=== PATIENT | female | born 1940 | race Caucasian/White ===

== ENCOUNTER 2018-06-10 16:20 | Inpatient (IN) ==
[2018-06-10] MEDS ORDERED: Isovue-370 500 ML BOTTLE IVP ONE (16:41)
[2018-06-10 17:03] LABS: Basophils % 0.4 %; Eosinophils # 0.1 K/mcL (0.0-0.6); Eosinophils % 1.3 %; Hematocrit 43.1 % (35.3-44.9); Hemoglobin 14.6 g/dL (11.5-15.4); Immature Granulocytes % 0.3 % (0-4); Lymphocytes # 1.5 K/mcL (0.6-4.6); Lymphocytes % 16.6 %; Mean Corpuscular HGB Conc 33.9 g/dL (31.6-35.5); Mean Corpuscular Hemoglobin 30.5 pg (28.0-33.3); Mean Platelet Volume 11.1 fL (9.4-12.4); Monocytes # 0.6 K/mcL (0.0-1.3); Monocytes % 6.3 %; Neutrophils # 6.8 K/mcL (1.6-8.9); Platelet Count 261 K/mcL (140-400); Red Blood Count 4.79 M/mcL (3.82-4.97); Red Cell Distribution Width 13.6 % (11.5-14.5); Segmented Neutrophils % 75.1 %
--- NOTE | 2018-06-10 17:10 | Emergency Department Note ---
Disposition Clinical Impression: New onset a-fib, Atrial fibrillation with RVR, Hypoxia, Acute dyspnea, Elevated brain natriuretic peptide (BNP) level Pneumonia Qualifiers: Pneumonia type: due to unspecified organism Laterality: bilateral Lung location: lower lobe of lung Qualified Code(s): J18.1 - Lobar pneumonia, u nspecified organism Pulmonary edema Qualifiers: Chronicity: acute Qualified Code(s): J81.0 - Acute pulmonary edema Disposition: Admitted As Inpatient Condition: Fair Referrals: Gary Brown MD [Primary Care Provider] - Forms: ED Satisfaction Letter Time of Disposition: 20:04 SOB HPI - General Chief Complaint: ED Shortness of Breath/Dyspnea Stated Complaint: Pleural effusion, HUDSON Time Seen by Provider: 06/10/18 16:31 Source: patient Mode of arrival: ambulatory Limitations: no limitations Nursing Notes Reviewed: Yes Vital Signs Reviewed: Yes - History of Present Illness Patient is a 78-year-old female with past medical history of smoking, hyperlipidemia, hypertension. She presents today via EMS due to concern for pl eural effusion, tachypnea, elevated heart rate, low oxygen level. Patient was sent from urgent care with reported finding of pleural effusions. Patient states that she has been short of breath for the past several days. She feels very short of breath when she is exerting herself. She denies any chest pain, productive cough, any fevers, vomiting, abdominal pain, diarrhea, blood in stool, any history of CHF or COPD. Denies any cardiac history. - Related Data Home Medications Medication Instructions Recorded Confirmed Aspirin 81 mg PO DAILY 11/12/15 06/10/18 Calcium Carbonate [Calcium] 600 mg PO BID 11/12/15 06/10/18 [place]-3/Dha/Epa/Fish Oil [Fish Oil 1,000 mg PO DAILY 11/12/15 06/10/18 1,000 mg Softgel] Simvastatin [Zocor] 20 mg PO HS 11/12/15 06/10/18 amLODIPine [Norvasc] 5 mg PO DAILY 11/12/15 06/10/18 Multivit-Min/FA/Lycopen/Lutein 1 each PO DAILY 06/10/18 06/10/18 [Centrum Silver Tablet] Allergies Allergy/AdvReac Type Severity Reaction Status Date / Time Amoxicillin Allergy Hives Verified 10/25/15 17:43 Sulfa (Sulfonamide Allergy Hives Verified 10/25/15 17:43 Antibiotics) oxycodone [Oxycodone] AdvReac Nausea Verified 07/14/17 14:28 All systems ED: reviewed and negative except as stated. Constitutional: Denies: fever Cardiovascular: Denies: chest pain Respiratory: Reports: dyspnea. Denies: cough, wheezes, hemoptysis, sputum production Gastrointestinal: Denies: abdominal pain, nausea, vomiting, diarrhea Genitourinary: Denies: urgency, dysuria Musculoskeletal: Denies: back pain Integumentary: Denies: rash Neurological: Denies: weakness, numbness, paresthesias Past Medical History - Past Medical History Attestation: Yes The following information was validated with the patient. Source: patient Medical history: Reports: hyperlipidemia, hypertension Surgical history: Reports: appendectomy, sinus surgery Psychiatric history: Reports: no psych history - Social History Smoking Status: Never smoker Smokeless Tobacco Status: No Alcohol use: Reports: none Drug use: Reports: none Physical Exam - General Limitations: no limitations General appearance: alert, other (Mild respiratory distress) - Head Head exam: atraumatic, normocephalic, normal inspection - Eye Eye exam: Present: normal appearance, PERRL, EOMI - ENT ENT exam: normal exam, normal oropharynx, mucous membranes moist - Neck Neck exam: Present: normal inspection, full ROM, trachea midline - Chest Chest inspection: Present: normal inspection, symmetric chest wall rise - Respiratory Respiratory exam: Present: respiratory distress (Mild), other (decreased RLL sounds with crackles; patient is mildly tachypneic, has mild increased work of breathing). Absent: wheezes, stridor - Cardiovascular Cardiovascular exam: Present: tachycardia, irregular rhythm, normal heart sounds - Abdominal Exam Abdominal exam: Present: soft, Non-Tender. Absent: tenderness, distention, guarding, rebound, rigidity - Extremities Exam Extremities exam: Present: normal inspection, full ROM. Absent: tenderness, pedal edema, calf tenderness - Neurological Exam Neurological exam: Present: alert, oriented X3 - Psychiatric Psychiatric exam: Present: normal affect, normal mood - Skin Skin exam: Present: warm, dry, intact, normal color Course Course Narrative: Patient was tachycardic on presentation in the 160s. It appears that she is in A. fib RVR on EKG. Patient had a chest x-ray today performed at urgent care that shows pleural effusion and mild pulmonary edema. No obvious signs of pneumonia. On physical exam, the patient is in mild respiratory distress, has increased work of breathing, is to get back, has decreased lung sounds on the right lower lobe with crackles. We will give the patient Cardizem 10 mg bolus for A. fib RVR. We also perform CT and she the chest to assess for pleural effusion versus pneumonia versus PE. Patient is placed on 2 L nasal cannula oxygen, she was 93% on presentation. She does not usually wear oxygen at home. Patient also received 2 albuterol breathing treatments prior to arrival. We will obtain basic labs, troponin, BNP. 20:04 CT the chest shows bilateral pleural effusions, possible bilateral lower lobe pneumonia. No evidence of any PE. Patient was started on Rocephin and azithromycin, given Lasix 40 mg. She was also placed on BiPAP. She had a be given Ativan 0.5 mg to be compliant with the BiPAP machine. She is given Cardizem bolus and placed on drip, heart rate is now on the 110s. Blood pressure remained stable throughout this entire stay. Currently concern for new onset A. fib RVR, patient was given Xarelto here in the department. She is also concerning for pneumonia, possible new onset CHF. Patient was accepted for admission by Dr. Royal. Chest CTA 06/10/18 16:41 IMPRESSION: No evidence of pulmonary embolism or aortic dissection. Bilateral pleural effusions with adjacent airspace disease along with interlobular septal thickening, the constellation of which is most suggestive of pulmonary edema. However, there are more focal areas of airspace disease within the lower lungs, therefore correlate with any clinical evidence of pneumonia or aspiration. D/ / Omar Hawkins MD / Omar Hawkins MD Interpreting Provider: Omar Hawkins MD Vital Signs Temperature 97.4 F L 06/10/18 16:23 Pulse Rate 161 06/10/18 16:23 Respiratory Rate 22 06/10/18 16:23 Blood Pressure 146/82 06/10/18 16:23 O2 Sat by Pulse Oximetry 94 06/10/18 16:23 Temperature 97.4 F L 06/10/18 16:23 Pulse Rate 123 06/10/18 19:20 Respiratory Rate 22 06/10/18 19:20 Blood Pressure 136/85 06/10/18 19:20 O2 Sat by Pulse Oximetry 99 06/10/18 19:20 Oxygen Delivery Oxygen Delivery Bipap Shortness of Breath/Dyspnea - MDM Narrative Medical decision making narrative: Patient was tachycardic on presentation in the 160s. It appears that she is in A. fib RVR on EKG. Patient had a chest x-ray today performed at urgent care that shows pleural effusion and mild pulmonary edema. No obvious signs of pneumonia. On physical exam, the patient is in mild respiratory distress, has increased work of breathing, is to get back, has decreased lung sounds on the right lower lobe with crackles. We will give the patient Cardizem 10 mg bolus for A. fib RVR. We also perform CT and she the chest to assess for pleural effusion versus pneumonia versus PE. Patient is placed on 2 L nasal cannula oxygen, she was 93% on presentation. She does not usually wear oxygen at home. Patient also received 2 albuterol breathing treatments prior to arrival. We will obtain basic labs, troponin, BNP. 20:04 CT the chest shows bilateral pleural effusions, possible bilateral lower lobe pneumonia. No evidence of any PE. Patient was started on Rocephin and azithromycin, given Lasix 40 mg. She was also placed on BiPAP. She had a be given Ativan 0.5 mg to be compliant with the BiPAP machine. She is given Cardizem bolus and placed on drip, heart rate is now on the 110s. Blood pressure remained stable throughout this entire stay. Currently concern for new onset A. fib RVR, patient was given Xarelto here in the department. She is also concerning for pneumonia, possible new onset CHF. Patient was accepted for admission by Dr. Royal. - Medical Records Medical records reviewed: Yes I reviewed the patient's medical records. - Lab Data Lab results reviewed: Yes I reviewed the patient's lab results. Result diagrams: 06/10/18 16:45 06/10/18 16:45 Lab Results 06/10/18 06/10/18 06/10/18 Range/Units 16:45 16:45 16:45 WBC 9.0 (4.3-11.1) K/mcL RBC 4.79 (3.82-4.97) M/mcL Hgb 14.6 (11.5-15.4) g/dL Hct 43.1 (35.3-44.9) % MCV 90.0 (83.0-100.0) fL MCH 30.5 (28.0-33.3) pg MCHC 33.9 (31.6-35.5) g/dL RDW 13.6 (11.5-14.5) % Plt Count 261 (140-400) K/mcL MPV 11.1 (9.4-12.4) fL Immature Gran % 0.3 (0-4) % Seg Neutrophils % 75.1 % Lymphocytes % 16.6 % Monocytes % 6.3 % Eosinophils % 1.3 % Basophils % 0.4 % Neutrophils # 6.8 (1.6-8.9) K/mcL Lymphocytes # 1.5 (0.6-4.6) K/mcL Monocytes # 0.6 (0.0-1.3) K/mcL Eosinophils # 0.1 (0.0-0.6) K/mcL Basophils # 0.0 (0.0-0.2) K/mcL Sodium 139 (136-145) mEq/L Potassium 4.2 (3.5-5.1) mEq/L Chloride 103 (98-107) mEq/L Carbon Dioxide 22 L (23-29) mEq/L BUN 14 (8-23) mg/dL Creatinine 0.82 (0.60-1.20) mg/dL Est GFR ( Amer) > 60 (> 60) Est GFR (Non-Af Amer) > 60 (> 60) BUN/Creatinine Ratio 17 (6-26) Glucose 139 H (70-105) mg/dL Calculated Osmolality 291 (280-300) Lactic Acid 2.0 (0.5-2.2) mmol/L Calcium 10.0 (8.6-10.3) mg/dL Troponin I < 0.03 (< 0.04) ng/mL B-Natriuretic Peptide (Less than 100) pg/mL 06/10/18 06/10/18 Range/Units 16:45 19:05 WBC (4.3-11.1) K/mcL RBC (3.82-4.97) M/mcL Hgb (11.5-15.4) g/dL Hct (35.3-44.9) % MCV (83.0-100.0) fL MCH (28.0-33.3) pg MCHC (31.6-35.5) g/dL RDW (11.5-14.5) % Plt Count (140-400) K/mcL MPV (9.4-12.4) fL Immature Gran % (0-4) % Seg Neutrophils % % Lymphocytes % % Monocytes % % Eosinophils % % Basophils % % Neutrophils # (1.6-8.9) K/mcL Lymphocytes # (0.6-4.6) K/mcL Monocytes # (0.0-1.3) K/mcL Eosinophils # (0.0-0.6) K/mcL Basophils # (0.0-0.2) K/mcL Sodium (136-145) mEq/L Potassium (3.5-5.1) mEq/L Chloride (98-107) mEq/L Carbon Dioxide (23-29) mEq/L BUN (8-23) mg/dL Creatinine (0.60-1.20) mg/dL Est GFR ( Amer) (> 60) Est GFR (Non-Af Amer) (> 60) BUN/Creatinine Ratio (6-26) Glucose (70-105) mg/dL Calculated Osmolality (280-300) Lactic Acid 2.0 (0.5-2.2) mmol/L Calcium (8.6-10.3) mg/dL Troponin I (< 0.04) ng/mL B-Natriuretic Peptide 406 H (Less than 100) pg/mL - Radiology Data Radiology results reviewed: Yes I reviewed the patient's radiology results. Chest CTA 06/10/18 16:41 IMPRESSION: No evidence of pulmonary embolism or aortic dissection. Bilateral pleural effusions with adjacent airspace disease along with interlobular septal thickening, the constellation of which is most suggestive of pulmonary edema. However, there are more focal areas of airspace disease within the lower lungs, therefore correlate with any clinical evidence of pneumonia or aspiration. D/ / Omar Hawkins MD / Omar Hawkins MD Interpreting Provider: Omar Hawkins MD - EKG Data EKG attestation: Yes I reviewed and interpreted this EKG. EKG results narrative: 06/10/2018 at 16:39. A. fib RVR. Rate 149. QRS 73. QTC 457. Normal axis. No acute ST elevation or depression. Changed from previous EKG which showed NSR on 11/11/15 S.B.A.R. - S.B.A.R. Situation: Demographics, MOA Background: Presenting Complaint, Relevant PMH, Meds, & Allergies Assessment: Vital Signs, Course and respsone to treatment, Exam Concerns, Patient/Family Expectation, Pertinant Lab Results, Outstanding Labs Recommendation: Barrier(s) to disposition, Recommendation based on pending studies, treatments, or consults S.B.A.R. Report Given to: Dr Braden Royal Attestation Statement - Attestation Attestation: I, Jovanni Dueñas DO, examined this patient [id number] and my medical decision-making was reviewed with Dr. Tristan Mcmahon, Resident Physician. I agree with the documented findings, disposition and treatment plan as described except to the extent set forth below. Please see my progress notes for details.
[2018-06-10 17:25] LABS: BUN/Creatinine Ratio 17 (6-26); Blood Urea Nitrogen 14 mg/dL (8-23); Carbon Dioxide 22 mEq/L (23-29); Chloride 103 mEq/L (98-107); Glucose 139 mg/dL (70-105); Osmolality,Calculated 291 (280-300); Potassium 4.2 mEq/L (3.5-5.1); Sodium 139 mEq/L (136-145); eGFR For Non-African Americans > 60 (> 60)
--- NOTE | 2018-06-10 17:25 | Emergency Department Note ---
Disposition Clinical Impression: New onset a-fib, Atrial fibrillation with RVR, Hypoxia, Acute dyspnea, Elevated brain natriuretic peptide (BNP) level Pneumonia Qualifiers: Pneumonia type: due to unspecified organism Laterality: bilateral Lung location: lower lobe of lung Qualified Code(s): J18.1 - Lobar pneumonia, u nspecified organism Pulmonary edema Qualifiers: Chronicity: acute Qualified Code(s): J81.0 - Acute pulmonary edema Disposition: Admitted As Inpatient Condition: Fair Time of Disposition: 20:12 General Adult HPI - General Chief complaint: ED Shortness of Breath/Dyspnea Stated complaint: Pleural effusion, HU[place] Time Seen by Provider: 06/10/18 16:31 Source: patient Mode of arrival: ambulatory Limitations: no limitations - History of Present Illness Pain Scale: 0 - Related Data Home Medications Medication Instructions Recorded Confirmed Aspirin 81 mg PO DAILY 11/12/15 06/10/18 Calcium Carbonate [Calcium] 600 mg PO BID 11/12/15 06/10/18 [place]-3/Dha/Epa/Fish Oil [Fish Oil 1,000 mg PO DAILY 11/12/15 06/10/18 1,000 mg Softgel] Simvastatin [Zocor] 20 mg PO HS 11/12/15 06/10/18 amLODIPine [Norvasc] 5 mg PO DAILY 11/12/15 06/10/18 Multivit-Min/FA/Lycopen/Lutein 1 each PO DAILY 06/10/18 06/10/18 [Centrum Silver Tablet] Allergies Allergy/AdvReac Type Severity Reaction Status Date / Time Amoxicillin Allergy Hives Verified 10/25/15 17:43 Sulfa (Sulfonamide Allergy Hives Verified 10/25/15 17:43 Antibiotics) oxycodone [Oxycodone] AdvReac Nausea Verified 07/14/17 14:28 Constitutional: Denies: fever Cardiovascular: Denies: chest pain Respiratory: Reports: dyspnea. Denies: cough, wheezes, hemoptysis, sputum production Gastrointestinal: Denies: abdominal pain, nausea, vomiting, diarrhea Genitourinary: Denies: urgency, dysuria Musculoskeletal: Denies: back pain Integumentary: Denies: rash Neurological: Denies: weakness, numbness, paresthesias Past Medical History - Past Medical History Medical history: Reports: hyperlipidemia, hypertension Surgical history: Reports: appendectomy, sinus surgery Psychiatric history: Reports: no psych history - Social History Smoking Status: Never smoker Smokeless Tobacco Status: No Alcohol use: Reports: none Drug use: Reports: none Physical Exam - General Limitations: no limitations General appearance: alert, other (Mild respiratory distress) Course Vital Signs Temperature 97.4 F L 06/10/18 16:23 Pulse Rate 161 06/10/18 16:23 Respiratory Rate 22 06/10/18 16:23 Blood Pressure 146/82 06/10/18 16:23 O2 Sat by Pulse Oximetry 94 06/10/18 16:23 Temperature 97.4 F L 06/10/18 16:23 Pulse Rate 120 06/10/18 20:05 Respiratory Rate 18 06/10/18 20:05 Blood Pressure 114/81 06/10/18 20:05 O2 Sat by Pulse Oximetry 99 06/10/18 20:05 Oxygen Delivery Oxygen Delivery Bipap Medical Decision Making - Lab Data Result diagrams: 06/10/18 16:45 06/10/18 16:45 Lab Results 06/10/18 06/10/18 06/10/18 Range/Units 16:45 16:45 16:45 WBC 9.0 (4.3-11.1) K/mcL RBC 4.79 (3.82-4.97) M/mcL Hgb 14.6 (11.5-15.4) g/dL Hct 43.1 (35.3-44.9) % MCV 90.0 (83.0-100.0) fL MCH 30.5 (28.0-33.3) pg MCHC 33.9 (31.6-35.5) g/dL RDW 13.6 (11.5-14.5) % Plt Count 261 (140-400) K/mcL MPV 11.1 (9.4-12.4) fL Immature Gran % 0.3 (0-4) % Seg Neutrophils % 75.1 % Lymphocytes % 16.6 % Monocytes % 6.3 % Eosinophils % 1.3 % Basophils % 0.4 % Neutrophils # 6.8 (1.6-8.9) K/mcL Lymphocytes # 1.5 (0.6-4.6) K/mcL Monocytes # 0.6 (0.0-1.3) K/mcL Eosinophils # 0.1 (0.0-0.6) K/mcL Basophils # 0.0 (0.0-0.2) K/mcL Sodium 139 (136-145) mEq/L Potassium 4.2 (3.5-5.1) mEq/L Chloride 103 (98-107) mEq/L Carbon Dioxide 22 L (23-29) mEq/L BUN 14 (8-23) mg/dL Creatinine 0.82 (0.60-1.20) mg/dL Est GFR ( Amer) > 60 (> 60) Est GFR (Non-Af Amer) > 60 (> 60) BUN/Creatinine Ratio 17 (6-26) Glucose 139 H (70-105) mg/dL Calculated Osmolality 291 (280-300) Lactic Acid 2.0 (0.5-2.2) mmol/L Calcium 10.0 (8.6-10.3) mg/dL Troponin I < 0.03 (< 0.04) ng/mL B-Natriuretic Peptide (Less than 100) pg/mL 06/10/18 06/10/18 Range/Units 16:45 19:05 WBC (4.3-11.1) K/mcL RBC (3.82-4.97) M/mcL Hgb (11.5-15.4) g/dL Hct (35.3-44.9) % MCV (83.0-100.0) fL MCH (28.0-33.3) pg MCHC (31.6-35.5) g/dL RDW (11.5-14.5) % Plt Count (140-400) K/mcL MPV (9.4-12.4) fL Immature Gran % (0-4) % Seg Neutrophils % % Lymphocytes % % Monocytes % % Eosinophils % % Basophils % % Neutrophils # (1.6-8.9) K/mcL Lymphocytes # (0.6-4.6) K/mcL Monocytes # (0.0-1.3) K/mcL Eosinophils # (0.0-0.6) K/mcL Basophils # (0.0-0.2) K/mcL Sodium (136-145) mEq/L Potassium (3.5-5.1) mEq/L Chloride (98-107) mEq/L Carbon Dioxide (23-29) mEq/L BUN (8-23) mg/dL Creatinine (0.60-1.20) mg/dL Est GFR ( Amer) (> 60) Est GFR (Non-Af Amer) (> 60) BUN/Creatinine Ratio (6-26) Glucose (70-105) mg/dL Calculated Osmolality (280-300) Lactic Acid 2.0 (0.5-2.2) mmol/L Calcium (8.6-10.3) mg/dL Troponin I (< 0.04) ng/mL B-Natriuretic Peptide 406 H (Less than 100) pg/mL Attestation Statement - Attestation Attestation: I, Jovanni Dueñas DO, examined this patient [id number] and my medical decision-making was reviewed with Dr. Tristan Mcmahon, Resident Physician. I agree with the documented findings, disposition and treatment plan as described except to the extent set forth below. Please see my progress notes for details. 78-year-old female presents emergency room in the care of family for evaluation of shortness of breath. The last several days the patient has been progressi vely getting worse with exertion. Every time she walks she is short of breath directly after she stops. Patient denies any history of COPD or CHF. She does have a remote smoking history but has not smoked in multiple years. Patient denies any chest pain fevers or chills. No nausea vomiting or diarrhea. No headache or vision change. She has not fallen or injured herself. She was seen in urgent care today and they diagnosed her with bilateral interstitial disease and perihilar abnormality. Patient has not had a productive cough or sputum. Patient is provided with 2 breathing treatments prior to transportation. On arrival here her heart rate is significantly elevated. Her lungs are otherwise clear. She does have an irregular heartbeat. Oropharynx is patent trachea is midline. No stridor no trismus. Patient is alert she is oriented she is answering questions appropriately. Cranial nerves II through XII are grossly intact with no acute abnormalities. Patient was able to ambulate from the wheelchair to the bed without any signs of ataxia or abnormality. Abdomen is soft nontender nondistended. No guarding or rigidity. Extremities are normal. No rashes or lesions noted this time. Concern is noted for interstitial lung disease exacerbated by possible congestive heart failure, COPD exacerbation, new onset atrial fibrillation. Patient will be provided with a single dose of Cardizem here in the emergency department secondary to the tachycardic heart rate. Her other vital signs otherwise stable. Breathing treatments will be ordered as needed. Steroids will be given. Chest x-ray EKG CBC chemistry troponin lactic acid will be ordered as well. Antibiotics will be held at this point we are definitive infectious source. Patient does not describe any productive cough or sputum to confirm concern for recent illness or infection. Disposition pending full workup and treatment course. See detailed documentation the physical exam, medical intervention, medical decision-making and disposition in the resident physician's note. No critical care provider the patient's treatment course at this time. CT angiography the chest will be added on this time considering the abnormal presentation to the chest x-ray and the patient's symptoms. 1814 CT angiography the chest is negative for acute pulmonary emboli. Does show interstitial markings concerning for pulmonary edema. Patient will be reevaluated this time. Her heart rate has come down appropriately with the Cardizem and she is less symptomatic with stable blood pressure. BiPAP will be offered for bleeding related issues. Patient's presentation is most consistent with cardiac arrhythmia exacerbated by pulmonary edema and heart failure. Patient will require admission after the treatment course has been established. Discussion will be had for possible anticoagulation secondary to atrial fib rillation. Patient denies any blood in her urine or stool. She has not had a GI bleed in the past and typically is stable hemoglobin. [address] Royal reviewed the case. No other recommendations or concerns are noted this time. Patient is otherwise clinical stable. Heart rate is co kel down appropriately with the titration of Cardizem. BiPAP is been applied the patient is tolerating it much better. Pulse ox is been normal. Patient's work of breathing is significantly less at this time. Patient will be monitored in the emergency department until the admission process is completed.
[2018-06-10 17:26] LABS: Troponin I < 0.03 ng/mL (< 0.04)
[2018-06-10] MEDS ORDERED: cefTRIAXone 1,000 MG in Water for inj. (sterile) 20 ML 10 ML IVP ONE (18:18)
[2018-06-10] MEDS ORDERED: Azithromycin 500 MG in D5% in Water 250 ML IVPB ONE (18:18)
[2018-06-10] MEDS ORDERED: methylPREDNISolone 125 MG/2 ML VIAL IVP ONE (18:21)
[2018-06-10] MEDS ORDERED: Furosemide 40 MG/4 ML VIAL IVP ONE (18:42)
[2018-06-10] MEDS ORDERED: *HR* LORazepam 2 MG/ML VIAL IVP ONE (18:42)
[2018-06-10] MEDS ORDERED: *HR* Rivaroxaban 10 MG TABLET PO ONE (19:17)
[2018-06-10] MEDS ORDERED: Naloxone 0.4 MG/ML INJ IVP PRN (20:44)
[2018-06-10] MEDS ORDERED: Ondansetron 4 MG/2 ML VIAL IVP PRN (20:44)
[2018-06-10] MEDS ORDERED: Acetaminophen 325 MG TABLET PO PRN (20:44)
--- NOTE | 2018-06-10 21:19 | Internal Med History&Physical ---
Addendum entered and electronically signed by Gay Kraft 06/11/18 03:18: CHADSVASC score of 4. Discussed recommendation for anticoagulation with patient and family on admission and they were agreeable. Spoke with patient regarding code status, patient states that she has a living will at home. She had difficultly articulating her wishes. Requested that patient have her family bring in her living will and POA. Patient was able to confirm that she did not want CPR in the event of cardiac arrest. She also states that she does not want to be a "vegetable on a ventilator." Informed patient that she will be documented as a DNR-CCA for now until her paperwork can be confirmed. Original Note: <Gay Kraft - Last Filed: 06/11/18 00:28> Date of Encounter: 06/11/18 Time of Encounter: 10:22 Internal Medicine - H&P: HPI Chief complaint: Shortness of breath Admitted From: Home History of present illness: Ms. Dominguez is a 78 year old female with history of hypertension, hyperlipidemia, current daily smoker presented to urgent care with complaint of progressive shortness of breath over the past several days and was sent to the [place] [facility] via EMS from urgent care due to bilateral pleural effusions and mild pulmonary edema on CXR, tachypnea and elevated heart rate. ER course: Tachycardic in the 160s EKG showed A. fib RVR, no known history CT chest with bilateral pleural effusions and possible bilateral lower lobe pneumonia. No evidence of PE. Received Rocephin and azithromycin 1 IV Lasix 40 mg 1 Placed on BiPAP with 30% FiO2 to mild respiratory distress, Ativan given for anxiety Cardizem bolus given, then Cardizem drip Xarelto 1 Solumedrol 125mg IV insulin On examination patient is sitting comfortably in bed with family at bedside. She states that she has had head congestion for approximately the past week which is why she initially sought care and was diagnosed with sinusitis. She denies any previous history of heart or lung disease, that she states she was d iagnosed with rheumatic fever as a child. States that her blood pressure has been well-controlled with medication. She states that she is fairly active and walks her dog regularly when the weather permits without difficulty. On Tuesday, patient reports that she acutely became short of breath on exertion. She becomes short of breath when walking for an extended period of time, and denies SOB at r est. Denies any lightheadedness, dizziness, syncope, chest pain, petitions, irregular heartbeat, falls, abdominal pain, or weakness. Past Med Surg Social Fam HX - Past Medical History Medical history: hyperlipidemia, hypertension Additional medical history: oa Psychiatric history: no psych history - Past Surgical History Surgical History: appendectomy, sinus surgery - Social History Smoking Status: Never smoker Smokeless Tobacco Status: No Alcohol use: none Drug use: none Internal Medicine - H&P: Meds Calcium Carbonate [Calcium] 600 mg PO BID 11/12/15 [History] [place]-3/Dha/Epa/Fish Oil [Fish Oil 1,000 mg Softgel] 1,000 mg PO DAILY 11/12/15 [History] RX: Aspirin 81 mg PO DAILY 11/12/15 [History] Simvastatin [Zocor] 20 mg PO HS 11/12/15 [History] amLODIPine [Norvasc] 5 mg PO DAILY 11/12/15 [History] Multivit-Min/FA/Lycopen/Lutein [Centrum Silver Tablet] 1 each PO DAILY 06/10/18 [History] Allergy/AdvReac Type Severity Reaction Status Date / Time Amoxicillin Allergy Hives Verified 10/25/15 17:43 Sulfa (Sulfonamide Allergy Hives Verified 10/25/15 17:43 Antibiotics) oxycodone [Oxycodone] AdvReac Nausea Verified 07/14/17 14:28 All Systems PM: A 10-system review of systems was performed and is negative for pertinent findings except as documented above in the HPI. - Constitutional Constitutional: no chills, no fever(s) - EENT Eyes: no change in vision Nose, mouth and throat: nasal congestion, no sinus pain - Cardiovascular Cardiovascular ROS IM: dyspnea on exertion, no chest pain, no diaphoresis, no edema, no irregular heart rhythm, no lightheadedness, no orthopnea, no palpitations, no syncope - Respiratory Respiratory: dyspnea on exertion, no cough - Gastrointestinal Gastrointestinal: no abdominal pain, no diarrhea, no vomiting - Genitourinary Genitourinary: no dysuria, no hematuria - Musculoskeletal Musculoskeletal ROS IM: no joint swelling, no numbness, no tingling - Integumentary Integumentary IM: no rash, no unusual bruising - Neurological Neurological ROS: no numbness, no tingling, no weakness - Constitutional Vitals: Temp Pulse Resp BP Pulse Ox 97.4 F L 131 28 113/63 99 06/10/18 16:23 06/10/18 21:08 06/10/18 21:08 06/10/18 21:08 06/10/18 21:08 General appearance: Present: A&O X 3, pleasant, no acute distress, answers questions appropriately Exam: see above - Head Head exam: Present: atraumatic, normocephalic - Eye Eye exam: Present: EOMI, conjuntiva pink, sclera anicteric - ENT ENT exam: Present: mucous membranes moist - Neck Neck exam general surgery: Present: trachea midline - Respiratory Respiratory exam: Absent: accessory muscle use, respiratory distress, wheezes Additional comments: Crackles noted in the bilateral bases. 94% on 2L NC. - Cardiovascular Cardiovascular exam: Present: irregular rhythm, +S1, +S2. Absent: diastolic murmur, rubs, systolic murmur Additional comments: tachycardic in the 140-150s during examination on 15mg Cardizem drip - GI/Abdominal GI/Abdominal exam: Present: normal bowel sounds, soft, no peritoneal signs. Absent: distended, tenderness - Extremities Exam Extremities exam: Present: pedal edema (trace pitting edema in bilateral LE), warm, radial pulses palpable and symmetrical. Absent: calf tenderness, cyanotic - Neurological Exam Neurological exam: Present: oriented X3, no focal deficits. Absent: pronater drift, facial droop, speech deficit - Psychiatric Psychiatric exam: Present: normal affect, normal mood - Skin Skin exam: Present: dry, intact, warm. Absent: cyanosis, diaphoretic, rash Internal Med - H&P Results - Labs CBC & Chem 7: 06/10/18 16:45 06/10/18 16:45 Labs: Short CBC 06/10/18 Range/Units 16:45 WBC 9.0 (4.3-11.1) K/mcL Hgb 14.6 (11.5-15.4) g/dL Hct 43.1 (35.3-44.9) % Plt Count 261 (140-400) K/mcL Neutrophils # 6.8 (1.6-8.9) K/mcL BMP 06/10/18 16:45 Sodium 139 Potassium 4.2 Chloride 103 Carbon Dioxide 22 L BUN 14 Creatinine 0.82 Glucose 139 H Calcium 10.0 Cardiac Enzymes 06/10/18 Range/Units 16:45 Troponin I < 0.03 (< 0.04) ng/mL - Impressions ITS Impressions Chest CTA 06/10/18 16:41 IMPRESSION: No evidence of pulmonary embolism or aortic dissection. Bilateral pleural effusions with adjacent airspace disease along with interlobular septal thickening, the constellation of which is most suggestive of pulmonary edema. However, there are more focal areas of airspace disease within the lower lungs, therefore correlate with any clinical evidence of pneumonia or aspiration. D/ / Omar Hawkins MD / Omar Hawkins MD Interpreting Provider: Omar Hawkins MD - Assessment and Plan (1) Atrial fibrillation with RVR Current Visit: Yes Status: Acute Assessment and plan: New onset, possibly secondary acute HR versus long-standing hypertension HR in the 140s-150s in the room on 15mg Cardizem drip Echo pending TSH pending Continue Cardizem drip Continue home ASA Ordered IV Lopressor 5mg x1 to assist with rate control Received 1 dose Xarelto in the ER (2) Acute CHF (congestive heart failure) Current Visit: Yes Status: Suspected Assessment and plan: Unclear etiology possibly secondary to long-standing hypertension versus AFib versus rheumatic heart disease EKG showed A. fib RVR Dyspnea without hypoxia, currently 94% on 2L NC Trace pedal edema on exam BNP 406 Troponin negative x1 Echo pending CTA chest with b/l pleural effusions and suggestive pulmonary edema. No evidence of PE. Started IV Lasix 20 BID NIPPV prn for dyspnea Strict I/Os Daily weights Qualifiers: Heart failure type: unspecified Qualified Code(s): I50.9 - Heart failure, unspecified (3) Bilateral pleural effusion Current Visit: Yes Status: Acute Assessment and plan: Likely secondary to acute CHF exacerbation and new onset A. fib with RVR CTA chest with b/l pleural effusions and suggestive pulmonary edema. No evidence of PE. Continue IV Lasix NIPPV prn dyspnea (4) Hypertension Current Visit: Yes Status: Chronic Assessment and plan: Chronic, stable Continue home Amlodipine Qualifiers: Hypertension type: essential hypertension Qualified Code(s): I10 - Essential (primary) hypertension (5) HLD (hyperlipidemia) Current Visit: Yes Status: Chronic Assessment and plan: Holding d/t potential for cardizem drip to cause decreased metabolism Qualifiers: Hyperlipidemia type: unspecified Qualified Code(s): E78.5 - Hyperlipidemia, unspecified - Time Spent With Patient Total time spent is greater than 50% in coordination of care (as documented) at patient's floor/unit and/or counseling patient: 25 - 35 minutes <Jean-Paul Roayl - Last Filed: 06/11/18 02:12> Date of Encounter: 06/10/18 Past Med Surg Social Fam HX - Family History Mother History Unknown: Yes All Systems PM: A 10-system review of systems was performed and is negative for pertinent findings except as documented above in the HPI. - Constitutional Vitals: Temp Pulse Resp BP Pulse Ox 97.6 F 141 18 108/81 93 06/10/18 23:36 06/10/18 23:36 06/10/18 23:36 06/10/18 23:36 06/10/18 23:36 Internal Med - H&P Results - Labs CBC & Chem 7: 06/11/18 00:18 06/11/18 00:18 Labs: Short CBC 06/10/18 Range/Units 16:45 WBC 9.0 (4.3-11.1) K/mcL Hgb 14.6 (11.5-15.4) g/dL Hct 43.1 (35.3-44.9) % Plt Count 261 (140-400) K/mcL Neutrophils # 6.8 (1.6-8.9) K/mcL BMP 06/10/18 16:45 Sodium 139 Potassium 4.2 Chloride 103 Carbon Dioxide 22 L BUN 14 Creatinine 0.82 Glucose 139 H Calcium 10.0 Cardiac Enzymes 06/10/18 Range/Units 16:45 Troponin I < 0.03 (< 0.04) ng/mL - Impressions ITS Impressions Chest CTA 06/10/18 16:41 IMPRESSION: No evidence of pulmonary embolism or aortic dissection. Bilateral pleural effusions with adjacent airspace disease along with interlobular septal thickening, the constellation of which is most suggestive of pulmonary edema. However, there are more focal areas of airspace disease within the lower lungs, therefore correlate with any clinical evidence of pneumonia or aspiration. D/ / Omar Hawkins MD / Omar Hawkins MD Interpreting Provider: Omar Hawkins MD - Time Spent With Patient Total time spent is greater than 50% in coordination of care (as documented) at patient's floor/unit and/or counseling patient: - Attending Attestation I performed a history and physical exam of the patient on 06/10/18 and discussed management with the resident. I reviewed the resident's note and agree with the documented findings and plan of care. Bernie Dominguez is a 78 year old woman with hypertension and hyperlipidemia who quit smoking 11 years ago presenting with increasing shortness of breath over the past several days as well as dyspnea on mild to moderate exertion. She denied any cough, fever, chills, chest pain. No prior reported history of heart failure COPD. She was notably tachycardic on presentation to the 160s. She was found to be in A. fib with RVR. Imaging as confirmed by me shows bilateral pleural effusions with some compressive atelectasis. She was placed on nasal cannula for supplemental oxygen and subsequently escalated to BiPAP and she remained dyspneic although not hypoxic. She was given boluses of diltiazem and subsequently placed on a drip. She was also given 1 dose of furosemide as well as rivaroxaban for anticoagulation. She is admitted for further care. Physical exam remarkable for a tachycardic, irregularly irregular heart rhythm, 2+ pitting edema of her lower legs. It appears she has a newly diagnosed tachyarrhythmia which has triggered her to acute congestive heart failure. No signs of infection present warranting continuation of antibiotics given in the emergency room. We will continue diuretics, monitor on telemetry, and NIPPV as needed. Obtain an echo in the morning for EF evaluation. Cardiology should be consulted in the morning. JOESPH SANCHEZ.
[2018-06-10] MEDS ORDERED: *HR* Metoprolol 5 MG/5 ML VIAL IVP ONE (23:54)
[2018-06-11 00:55] LABS: Hemoglobin 13.6 g/dL (11.5-15.4); Immature Granulocytes % 0.5 % (0-4); Lymphocytes # 0.4 K/mcL (0.6-4.6); Lymphocytes % 5.9 %; Mean Corpuscular HGB Conc 33.2 g/dL (31.6-35.5); Mean Corpuscular Volume 90.3 fL (83.0-100.0); Mean Platelet Volume 11.3 fL (9.4-12.4); Monocytes % 0.5 %; Neutrophils # 5.7 K/mcL (1.6-8.9); Platelet Count 256 K/mcL (140-400); Red Blood Count 4.54 M/mcL (3.82-4.97); Red Cell Distribution Width 13.8 % (11.5-14.5); Segmented Neutrophils % 93.1 %
[2018-06-11 01:06] LABS: Activated Partial Thrombo Time 47.7 Seconds (26.0-36.0)
[2018-06-11 01:15] LABS: BUN/Creatinine Ratio 17 (6-26); Blood Urea Nitrogen 15 mg/dL (8-23); Calcium 9.4 mg/dL (8.6-10.3); Carbon Dioxide 23 mEq/L (23-29); Chloride 102 mEq/L (98-107); Glucose 165 mg/dL (70-105); Osmolality,Calculated 291 (280-300); Potassium 4.2 mEq/L (3.5-5.1); Sodium 138 mEq/L (136-145); eGFR For Non-African Americans > 60 (> 60)
[2018-06-11 01:18] LABS: INR 2.6; Prothrombin Time 28.9 Seconds (9.4-12.1)
[2018-06-11] MEDS ORDERED: amLODIPine 5 MG TABLET PO SCH (09:00)
[2018-06-11] MEDS: Aspirin 81 MG TAB.CHEW PO SCH (09:18)
[2018-06-11] MEDS: Furosemide 20 MG/2 ML VIAL IVP SCH ×2 (09:18→20:15)
--- NOTE | 2018-06-11 10:09 | Internal Med Progress Note ---
<Kenny Calzada - Last Filed: 06/11/18 14:49> Hospitalist Progress Note - Encounter Date of Encounter: 06/11/18 Time of Encounter: 11:10 - Subjective Interval History: Patient was seen and examined at bedside this morning. She states that overall she is feeling better when compared to admission. She presented with shortness of breath which has improved and she is denying any symptoms of fevers, chills, cough, palpitations, chest pain. - Exam Vitals: Temp Pulse Resp BP Pulse Ox 97.6 F 94 16 103/85 96 06/11/18 03:38 06/11/18 08:00 06/11/18 08:00 06/11/18 08:00 06/11/18 08:00 Exam: Gen.: Vitals noted. No acute distress. AAOx3, resting comfortably in bed. HEENT: PERRL/EOMI, oropharynx clear, Normocephalic, atraumatic, MMM Cardiac: RRR, no murmur, +S1/S2, trace BLE edema Pulmonary: decreased in bases. faint crackles, equal chest expansion, unlabored breathing Abdomen: soft, nontender, BS noted, no guarding, no palpable HSM Skin: warm and dry, no visible lesions. MSK: ROM intact, no joint swelling noted, gait no assessed while in bed. Non tender calf or clubbing Neuro: A&Ox3, moves all extremities, no focal deficits, sensation intact Psych: Appropriate mood and behavior, AOx3 - Assessment and Plan (1) Atrial fibrillation with RVR Current Visit: Yes Status: Acute Assessment and Plan: - Presented with new onset atrial fibrillation with RVR - Confirmed by EKG findings - Rate currently remains elevated at 128 on Cardizem drip - Blood pressure stable at 102/72 - CHADVASC of 4 (age, female, CHF, HTN) - Started on Xarelto in emergency department, will switch to heparin drip this afternoon - Etiology is most likely consistent with CAD leading to CHF with exacerbation as below. - TSH, electrolytes within normal limits Plan - Continue Cardizem drip and will attempt to transition to by mouth tomorrow - Continue heparin drip - Echocardiogram pending - Further recommendations pending echo results (2) Acute CHF (congestive heart failure) Current Visit: Yes Status: Suspected Assessment and Plan: - Suspected new onset CHF given findings of pulmonary edema, elevated BNP, hypoxia - Currently tolerating 3 L of oxygen, no home oxygen requirement - BNP elevated at 406 - Chest x-ray urgent care showed perihilar and basilar opacities with small effusions most consistent with edema - CTA was performed in emergency department and showed bilateral pleural effusions and interlobular septal thickening again suggested pulmonary edema. - Patient states symptoms began acutely and been getting progressively worse without any episodes of chest pain Plan - Gentle diuresis as patient's blood pressure has been borderline with Cardizem drip - Lasix 20 mg IV twice a day - Echocardiogram ordered and pending - Will likely need ischemic evaluation in future (3) Pleural effusion Current Visit: Yes Status: Acute Assessment and Plan: Bilateral as above secondary to suspected CHF (4) New onset a-fib Current Visit: Yes Status: Acute Assessment and Plan: As above (5) Hypertension Current Visit: Yes Status: Chronic Assessment and Plan: On Cardizem drip with borderline blood pressures Most recent reading of 102/72 (6) HLD (hyperlipidemia) Current Visit: Yes Status: Chronic Assessment and Plan: Continue home statin DVT Prophylaxis: On heparin drip - Time Spent with Patient Total time spent is greater than 50% in coordination of care (as documented) at patient's floor/unit and/or counseling patient: Internal Medicine: Result - Labs CBC & Chem 7: 06/11/18 00:18 06/11/18 00:18 Labs: Short CBC 06/10/18 06/11/18 Range/Units 16:45 00:18 WBC 9.0 6.1 (4.3-11.1) K/mcL Hgb 14.6 13.6 (11.5-15.4) g/dL Hct 43.1 41.0 (35.3-44.9) % Plt Count 261 256 (140-400) K/mcL Neutrophils # 6.8 5.7 (1.6-8.9) K/mcL BMP 06/10/18 06/11/18 16:45 00:18 Sodium 139 138 Potassium 4.2 4.2 Chloride 103 102 Carbon Dioxide 22 L 23 BUN 14 15 Creatinine 0.82 0.86 Glucose 139 H 165 H Calcium 10.0 9.4 Cardiac Enzymes 06/10/18 Range/Units 16:45 Troponin I < 0.03 (< 0.04) ng/mL - ABG Interpretation ABG results: PT/INR, D-dimer PT 28.9 Seconds (9.4-12.1) H 06/11/18 00:18 - Impressions Impressions Chest CTA 06/10/18 16:41 IMPRESSION: No evidence of pulmonary embolism or aortic dissection. Bilateral pleural effusions with adjacent airspace disease along with interlobular septal thickening, the constellation of which is most suggestive of pulmonary edema. However, there are more focal areas of airspace disease within the lower lungs, therefore correlate with any clinical evidence of pneumonia or aspiration. D/ / Omar Hawkins MD / Omar Hawkins MD Interpreting Provider: Omar Hawkins MD Consult Discharge Plan - Plan Referrals: Gary Brown MD [Primary Care Provider] - <Jon Zayas - Last Filed: 06/11/18 15:25> Hospitalist Progress Note - Encounter Date of Encounter: 06/11/18 - Exam Vitals: Temp Pulse Resp BP Pulse Ox 97.6 F 128 16 102/72 92 06/11/18 03:38 06/11/18 11:41 06/11/18 11:41 06/11/18 11:41 06/11/18 11:41 - Assessment and Plan (1) Respiratory failure Current Visit: Yes Status: Acute (2) Pulmonary edema Current Visit: Yes Status: Acute (3) Pleural effusion Current Visit: Yes Status: Acute (4) New onset a-fib Current Visit: Yes Status: Acute (5) Atrial fibrillation with RVR Current Visit: Yes Status: Acute (6) Acute CHF (congestive heart failure) Current Visit: Yes Status: Suspected (7) Hypertension Current Visit: Yes Status: Chronic (8) HLD (hyperlipidemia) Current Visit: Yes Status: Chronic (9) Atrial fibrillation Current Visit: Yes Status: Suspected - Time Spent with Patient Total time spent is greater than 50% in coordination of care (as documented) at patient's floor/unit and/or counseling patient: Internal Medicine: Result - Labs CBC & Chem 7: 06/11/18 00:18 06/11/18 00:18 Labs: Short CBC 06/10/18 06/11/18 Range/Units 16:45 00:18 WBC 9.0 6.1 (4.3-11.1) K/mcL Hgb 14.6 13.6 (11.5-15.4) g/dL Hct 43.1 41.0 (35.3-44.9) % Plt Count 261 256 (140-400) K/mcL Neutrophils # 6.8 5.7 (1.6-8.9) K/mcL BMP 06/10/18 06/11/18 16:45 00:18 Sodium 139 138 Potassium 4.2 4.2 Chloride 103 102 Carbon Dioxide 22 L 23 BUN 14 15 Creatinine 0.82 0.86 Glucose 139 H 165 H Calcium 10.0 9.4 Cardiac Enzymes 06/10/18 Range/Units 16:45 Troponin I < 0.03 (< 0.04) ng/mL - ABG Interpretation ABG results: PT/INR, D-dimer PT 28.9 Seconds (9.4-12.1) H 06/11/18 00:18 - Impressions Impressions Chest CTA 06/10/18 16:41 IMPRESSION: No evidence of pulmonary embolism or aortic dissection. Bilateral pleural effusions with adjacent airspace disease along with interlobular septal thickening, the constellation of which is most suggestive of pulmonary edema. However, there are more focal areas of airspace disease within the lower lungs, therefore correlate with any clinical evidence of pneumonia or aspiration. D/ / Omar Hawkins MD / Omar Hawkins MD Interpreting Provider: Omar Hawkins MD - Attending Attestation I examined this patient and my medical decision-making was reviewed with the Resident Physician on 06/11/18. I agree with the documented findings, disposition and treatment plan as described except to the extent set forth below. Ms Dominguez is currently admitted for new a fib with bilateral pleural effusions. She remains moderate to high risk due to potential for worsening clinical status. Ms Dominguez is up in chair. Heart rate was better till she gets up and moves. No fever or chills. Breathing better today. No CP. Exam alert Comfortable Mucus membranes dry Heart irreg and tachy No wheeze. Decreased breath sounds Abd soft Trace edema I/P 1. Atrial fibrillation 2. Pulmonary edema 3. Smoker Further diagnoses and plan as above. <Kenny Calzada - Last Filed: 06/11/18 14:49> (2) Acute CHF (congestive heart failure) Qualifiers: Heart failure type: unspecified Qualified Code(s): I50.9 - Heart failure, unspecified (5) Hypertension Qualifiers: Hypertension type: essential hypertension Qualified Code(s): I10 - Essential (primary) hypertension (6) HLD (hyperlipidemia) Qualifiers: Hyperlipidemia type: unspecified Qualified Code(s): E78.5 - Hyperlipidemia, unspecified <Jon Zayas - Last Filed: 06/11/18 15:25> (1) Respiratory failure Qualifiers: Chronicity: acute Respiratory failure complication: hypoxia Qualified Code(s): J96.01 - Acute respiratory failure with hypoxia (2) Pulmonary edema Qualifiers: Chronicity: acute Qualified Code(s): J81.0 - Acute pulmonary edema (6) Acute CHF (congestive heart failure) Qualifiers: Heart failure type: diastolic Qualified Code(s): I50.31 - Acute diastolic (congestive) heart failure (7) Hypertension Qualifiers: Hypertension type: essential hypertension Qualified Code(s): I10 - Essential (primary) hypertension (8) HLD (hyperlipidemia) Qualifiers: Hyperlipidemia type: mixed hyperlipidemia Qualified Code(s): E78.2 - Mixed hyperlipidemia (9) Atrial fibrillation Qualifiers: Atrial fibrillation type: chronic Qualified Code(s): I48.2 - Chronic atrial fibrillation
[2018-06-11] MEDS ORDERED: *HR* Heparin 5,000 UNIT/ML VIAL IVP ONE (14:46)
[2018-06-11] MEDS ORDERED: *HR* Heparin 5,000 UNIT/ML VIAL IVP PRN ×2 (14:46)
[2018-06-11 15:54] LABS: INR 1.6; Prothrombin Time 18.1 Seconds (9.4-12.1)
[2018-06-11 16:22] LABS: Heparin anti-factor XA UFH 1.5 IU/mL (0.30-0.70)
[2018-06-11] MEDS ORDERED: Heparin 25,000 UNIT/250 ML D5W 25,000 UNIT/250 ML IV.SOLN IVC SCH (18:00)
[2018-06-11] MEDS: Heparin 25,000 UNIT/250 ML D5W 25,000 UNIT/250 ML IV.SOLN IVC SCH (22:17)
[2018-06-12 04:43] LABS: Basophils % 0.1 %; Hematocrit 36.2 % (35.3-44.9); Immature Granulocytes % 0.6 % (0-4); Lymphocytes # 0.9 K/mcL (0.6-4.6); Mean Corpuscular HGB Conc 33.1 g/dL (31.6-35.5); Mean Corpuscular Hemoglobin 30.4 pg (28.0-33.3); Mean Corpuscular Volume 91.6 fL (83.0-100.0); Mean Platelet Volume 11.3 fL (9.4-12.4); Monocytes # 1.2 K/mcL (0.0-1.3); Monocytes % 6.8 %; Neutrophils # 15.3 K/mcL (1.6-8.9); Platelet Count 252 K/mcL (140-400); Red Blood Count 3.95 M/mcL (3.82-4.97); Red Cell Distribution Width 14.2 % (11.5-14.5); Segmented Neutrophils % 87.5 %
[2018-06-12 04:59] LABS: BUN/Creatinine Ratio 35 (6-26); Blood Urea Nitrogen 36 mg/dL (8-23); Calcium 9.3 mg/dL (8.6-10.3); Carbon Dioxide 27 mEq/L (23-29); Chloride 106 mEq/L (98-107); Glucose 127 mg/dL (70-105); Magnesium 2.4 mg/dL (1.6-2.6); Osmolality,Calculated 302 (280-300); Sodium 141 mEq/L (136-145); eGFR For Non-African Americans 52 (> 60)
--- NOTE | 2018-06-12 08:27 | Internal Med Progress Note ---
<Carlton Barillas N - Last Filed: 06/12/18 13:11> Hospitalist Progress Note - Encounter Date of Encounter: 06/12/18 Time of Encounter: 09:30 - Subjective Interval History: Patient seen and examined at bedside this morning. She is sitting upright in no acute distress, states that she is feeling better however has a new cough that is productive of clear sputum. Denies any fevers or chills, shortness of breath has improved. Heart rate is still tachycardic with 110s during examination and Cardizem drip is at 5. - Exam Vitals: Temp Pulse Resp BP Pulse Ox 98.3 F 105 18 124/75 94 06/12/18 06:34 06/12/18 06:34 06/12/18 06:34 06/12/18 06:34 06/12/18 06:34 Exam: General: Sitting upright in bed, no acute distress HEENT: Pupils are equal round reactive to light, extra ocular muscles intact, oropharynx is moist, head is atraumatic and normocephalic. Neck: No JVD, trachea midline Chest: Symmetrical chest wall rise, no tenderness to palpation Respiratory: Clear to auscultation bilaterally unable to auscultate any crackles Cardiovascular: Tachycardia with irregular rhythm, no murmurs Abdomen: Soft, nontender, no guarding rigidity Extremities: 1+ pitting edema of the lower extremity's bilaterally Neurological: No obvious focal neurological deficits Psych: Appropriate mood and affect - Assessment and Plan (1) Atrial fibrillation with RVR Current Visit: Yes Status: Acute Assessment and Plan: - Presented with new onset atrial fibrillation with RVR - Confirmed by EKG findings - Continues to remain elevated, on Cardizem. Patient was tachycardic in the 110s - Blood pressure stable at 1 2475 - CHADVASC of 4 (age, female, CHF, HTN), currently on a heparin drip - Suspect A. fib with RVR in the setting of CHF Plan -We will titrate off Cardizem drip and transition to oral Cardizem 60 mg 3 times a day and adjust as necessary -We will consult cardiology for further recommendations -Continue heparin drip -Echo pending (2) Acute CHF (congestive heart failure) Current Visit: Yes Status: Suspected Assessment and Plan: - Suspected new onset CHF given findings of pulmonary edema, elevated BNP, hypoxia - Currently tolerating 2 L of oxygen, no home oxygen requirement - BNP elevated at 406 - Chest x-ray urgent care showed perihilar and basilar opacities with small effusions most consistent with edema - CTA was performed in emergency department and showed bilateral pleural effusions and interlobular septal thickening again suggested pulmonary edema. Plan - Gentle diuresis as patient's blood pressure has been borderline with Cardizem drip - Lasix 20 mg IV twice a day - Echocardiogram ordered and pending - Will likely need ischemic evaluation in future, cardiology consult pending - Repeat CXR pending (3) Pleural effusion Current Visit: Yes Status: Acute Assessment and Plan: -bilateral pleural effusions noted on initial imaging -Suspect secondary to underlying CHF Plan: -Repeat CXR pending to assess for worsening effusions (4) Hypertension Current Visit: Yes Status: Chronic Assessment and Plan: on cardizem drip and transitioning to oral cardizem currently normotensive (5) HLD (hyperlipidemia) Current Visit: Yes Status: Chronic Assessment and Plan: continue statin (6) DVT prophylaxis Current Visit: Yes Status: Acute Assessment and Plan: on heparin - Time Spent with Patient Total time spent is greater than 50% in coordination of care (as documented) at patient's floor/unit and/or counseling patient: Internal Medicine: Result - Labs CBC & Chem 7: 06/12/18 04:02 06/12/18 04:02 Labs: Short CBC 06/12/18 Range/Units 04:02 WBC 17.5 H D (4.3-11.1) K/mcL Hgb 12.0 D (11.5-15.4) g/dL Hct 36.2 (35.3-44.9) % Plt Count 252 (140-400) K/mcL Neutrophils # 15.3 H (1.6-8.9) K/mcL BMP 06/12/18 04:02 Sodium 141 Potassium 4.0 Chloride 106 Carbon Dioxide 27 BUN 36 H Creatinine 1.02 Glucose 127 H Calcium 9.3 - ABG Interpretation ABG results: PT/INR, D-dimer PT 18.1 Seconds (9.4-12.1) H 06/11/18 15:27 Consult Discharge Plan - Plan Referrals: Gary Brown MD [Primary Care Provider] - Prescriptions: Apixaban [Eliquis] 2.5 mg PO BID #10 tablet Rivaroxaban [Xarelto] 20 mg PO DAILY #10 tablet <MarquezJon A - Last Filed: 06/12/18 18:06> Hospitalist Progress Note - Encounter Date of Encounter: 06/12/18 - Exam Vitals: Temp Pulse Resp BP Pulse Ox 98.3 F 82 16 119/62 94 06/12/18 14:26 06/12/18 14:26 06/12/18 14:26 06/12/18 14:26 06/12/18 14:26 - Assessment and Plan (1) Respiratory failure Current Visit: Yes Status: Acute (2) Pulmonary edema Current Visit: Yes Status: Acute (3) Pleural effusion Current Visit: Yes Status: Acute (4) New onset a-fib Current Visit: Yes Status: Acute (5) Atrial fibrillation with RVR Current Visit: Yes Status: Acute (6) Acute CHF (congestive heart failure) Current Visit: Yes Status: Suspected (7) Hypertension Current Visit: Yes Status: Chronic (8) HLD (hyperlipidemia) Current Visit: Yes Status: Chronic (9) Atrial fibrillation Current Visit: Yes Status: Suspected - Time Spent with Patient Total time spent is greater than 50% in coordination of care (as documented) at patient's floor/unit and/or counseling patient: Internal Medicine: Result - Labs CBC & Chem 7: 06/12/18 04:02 06/12/18 04:02 Labs: Short CBC 06/12/18 Range/Units 04:02 WBC 17.5 H D (4.3-11.1) K/mcL Hgb 12.0 D (11.5-15.4) g/dL Hct 36.2 (35.3-44.9) % Plt Count 252 (140-400) K/mcL Neutrophils # 15.3 H (1.6-8.9) K/mcL BMP 06/12/18 04:02 Sodium 141 Potassium 4.0 Chloride 106 Carbon Dioxide 27 BUN 36 H Creatinine 1.02 Glucose 127 H Calcium 9.3 - ABG Interpretation ABG results: PT/INR, D-dimer PT 18.1 Seconds (9.4-12.1) H 06/11/18 15:27 - Impressions Impressions Chest X-Ray 06/12/18 09:12 IMPRESSION: Findings compatible pulmonary edema with basilar atelectasis and small effusions. D/ / Grayson Snell / Grayson Snell Interpreting Provider: Grayson Snell Echocardiogram 06/12/18 20:51 Impressions: LVEF 60%. Indeterminate diastolic function. Normal LV chamber size, wall thickness Normal right ventricular structure and function. Severely dilated left atrium.Moderately dilated right atrium. Moderate-severe mitral stenosis.Mean transmitral gradient is 19 mmHg @ HR 107/min. MVA was not well calculated Moderate tricuspid regurgitation. Moderate pulmonary hypertension. Moderate pleural effusion. Left Ventricular Wall Motion: Rest Echo Findings All wall segments showed normal motion. Findings: Study Quality * Technically adequate exam. ECG Findings * Atrial fibrillation. Left Ventricle * LVEF 60%. * Indeterminate diastolic function. * Normal LV chamber size, wall thickness Right Ventricle * Normal right ventricular structure and function. Left Atrium * Severely dilated left atrium. Right Atrium * Moderately dilated right atrium. Interatrial Septum * No evidence of PFO by color Doppler. Aortic Valve * Aortic valve not well visualized. * Moderately calcified aortic valve leaflets. * No aortic regurgitation. * No aortic stenosis. Mitral Valve * Moderate mitral annular calcification * Mild mitral regurgitation. * Moderate-severe mitral stenosis. * Mean transmitral gradient is 19 mmHg @ 107/min. MVA was not well calculated Tricuspid Valve * Moderate tricuspid regurgitation. * Moderate pulmonary hypertension. * Estimated RVSP is 50 mmHg. * Estimated RA pressure is 15 mmHg. Pulmonic Valve * Pulmonic valve not well visualized. Aorta * Normally sized aortic root. Pericardium * The pericardium appears normal. IVC * The IVC is dilated. Pleural Effusion * Moderate pleural effusion. - Attending Attestation I examined this patient and my medical decision-making was reviewed with the Resident Physician on 06/12/18. I agree with the documented findings, d isposition and treatment plan as described except to the extent set forth below. Ms Dominguez is currently admitted for acute rapid a fib. She remains moderate to high risk due to potential for worsening clinical status. Ms Dominguez is doing OK. No CP. Some cough today. Heart rate still elevated. PO meds started. No GI issues. Exam alert. Comfortable in bed Mucus membranes dry Heart irreg and tachy No wheeze. Some decreased breath sounds Abd soft No edema I/P 1. Atrial fibrillation - on Cardizem. Card eval today 2. Cough - check CXR today/ Further diagnoses and plan as above. <Carlton Barillas N - Last Filed: 06/12/18 13:11> (2) Acute CHF (congestive heart failure) Qualifiers: Heart failure type: diastolic Qualified Code(s): I50.31 - Acute diastolic (congestive) heart failure (4) Hypertension Qualifiers: Hypertension type: essential hypertension Qualified Code(s): I10 - Essential (primary) hypertension (5) HLD (hyperlipidemia) Qualifiers: Hyperlipidemia type: mixed hyperlipidemia Qualified Code(s): E78.2 - Mixed hyperlipidemia <Jon Zayas A - Last Filed: 06/12/18 18:06> (1) Respiratory failure Qualifiers: Chronicity: acute Respiratory failure complication: hypoxia Qualified Code(s): J96.01 - Acute respiratory failure with hypoxia (2) Pulmonary edema Qualifiers: Chronicity: acute Qualified Code(s): J81.0 - Acute pulmonary edema (6) Acute CHF (congestive heart failure) Qualifiers: Heart failure type: diastolic Qualified Code(s): I50.31 - Acute diastolic (congestive) heart failure (7) Hypertension Qualifiers: Hypertension type: essential hypertension Qualified Code(s): I10 - Essential (primary) hypertension (8) HLD (hyperlipidemia) Qualifiers: Hyperlipidemia type: mixed hyperlipidemia Qualified Code(s): E78.2 - Mixed hyperlipidemia (9) Atrial fibrillation Qualifiers: Atrial fibrillation type: chronic Qualified Code(s): I48.2 - Chronic atrial fibrillation
[2018-06-12] MEDS: Aspirin 81 MG TAB.CHEW PO SCH (09:06)
[2018-06-12] MEDS: Furosemide 20 MG/2 ML VIAL IVP SCH ×2 (09:09→20:38)
[2018-06-13 05:45] LABS: Basophils % 0.1 %; Eosinophils % 0.1 %; Hematocrit 37.5 % (35.3-44.9); Hemoglobin 12.5 g/dL (11.5-15.4); Immature Granulocytes % 0.4 % (0-4); Lymphocytes # 1.3 K/mcL (0.6-4.6); Lymphocytes % 8.1 %; Mean Corpuscular HGB Conc 33.3 g/dL (31.6-35.5); Mean Corpuscular Hemoglobin 30.1 pg (28.0-33.3); Mean Corpuscular Volume 90.4 fL (83.0-100.0); Mean Platelet Volume 10.5 fL (9.4-12.4); Monocytes # 1.2 K/mcL (0.0-1.3); Monocytes % 7.2 %; Neutrophils # 13.6 K/mcL (1.6-8.9); Platelet Count 259 K/mcL (140-400); Red Blood Count 4.15 M/mcL (3.82-4.97); Red Cell Distribution Width 14.1 % (11.5-14.5); Segmented Neutrophils % 84.1 %
[2018-06-13 06:10] LABS: BUN/Creatinine Ratio 41 (6-26); Blood Urea Nitrogen 35 mg/dL (8-23); Calcium 9.4 mg/dL (8.6-10.3); Carbon Dioxide 26 mEq/L (23-29); Chloride 103 mEq/L (98-107); Glucose 137 mg/dL (70-105); Osmolality,Calculated 302 (280-300); Potassium 3.6 mEq/L (3.5-5.1); Sodium 141 mEq/L (136-145); eGFR For Non-African Americans > 60 (> 60)
[2018-06-13] MEDS: Aspirin 81 MG TAB.CHEW PO SCH (08:23)
[2018-06-13] MEDS: Furosemide 20 MG/2 ML VIAL IVP SCH ×2 (08:25→22:12)
--- NOTE | 2018-06-13 09:08 | Internal Med Progress Note ---
<Carlton Barillas N - Last Filed: 06/13/18 11:16> Hospitalist Progress Note - Encounter Date of Encounter: 06/13/18 Time of Encounter: 09:30 - Subjective Interval History: Patient seen and examined at bedside this morning, she complains of increased shortness of breath overnight for which she required BiPAP which helped her symptoms. Echo yesterday revealed LVEF 60% however there were severely dilated left atrium with moderate-severe mitral stenosis with a mean transmitral gradient of 19mmHg. suspect patient's A. fib is secondary to valvular etiology given echo findings of the mitral valve. - Exam Vitals: Temp Pulse Resp BP Pulse Ox 98.8 F 111 16 116/66 97 06/13/18 06:51 06/13/18 06:51 06/13/18 06:51 06/13/18 06:51 06/13/18 06:51 Exam: General: Sitting upright in bed, no acute distress HEENT: Pupils are equal round reactive to light, extra ocular muscles intact, oropharynx is moist, head is atraumatic and normocephalic. Neck: No JVD, trachea midline Chest: Symmetrical chest wall rise, no tenderness to palpation Respiratory: Clear to auscultation bilaterally unable to auscultate any crackles Cardiovascular: Tachycardia with irregular rhythm, no murmurs Abdomen: Soft, nontender, no guarding rigidity Extremities: 1+ pitting edema of the lower extremity's bilaterally Neurological: No obvious focal neurological deficits Psych: Appropriate mood and affect - Assessment and Plan (1) Atrial fibrillation with RVR Current Visit: Yes Status: Acute Assessment and Plan: - Presented with new onset atrial fibrillation with RVR - Confirmed by EKG findings - Continues to remain elevated, on Cardizem drip and receiving oral Cardizem 90 mg 3 times a day - CHADVASC of 4 (age, female, CHF, HTN), currently on a heparin drip - Suspect vascular etiology for patient's A. fib as echo revealed dilated left atrium with moderate-severe mitral valve stenosis Plan -We will attempt to wean off Cardizem drip and optimize medical management for rate control with oral Cardizem -Patient will require warfarin anticoagulation due to valvular A. fib -Cardiology consultation pending -Continue heparin drip and bridge to warfarin (2) Acute CHF (congestive heart failure) Current Visit: Yes Status: Suspected Assessment and Plan: -Chest x-ray performed yesterday shows findings compatible with pulmonary edema -Patient had a cough and shortness of breath which responded well to BiPAP overnight -Currently saturating well on 2 L nasal cannula Plan: -We will continue gentle diuresis with 20 mg IV Lasix daily -Echo performed yesterday showed moderate-severe mitral valve stenosis leading to dilated left atrium and likely cause for pulmonary edema -Cardiology consultation pending (3) Rheumatic heart disease Current Visit: Yes Status: Acute Assessment and Plan: -Patient has mitral valve stenosis with significant left atrial enlargement and subsequent afib and pulmonary edema -Patient admits to history of rheumatic fever "in the 3rd grade" -Suspect mitral valve stenosis secondary to rheumatic heart disease Plan: -Continue gentle hydration -Continue afib management with cardizem -Pending cardiology consultation (4) Pleural effusion Current Visit: Yes Status: Acute Assessment and Plan: -Bilateral pleural effusions noted on initial imaging -Suspect secondary to pulmonary edema -Repeat chest x-ray redemonstrated the effusions Plan: -Patient will require optimization of her underlying mitral valve stenosis and A. fib to decrease pulmonary edema which should improve her pleural effusions as well -Cardiology consultation pending (5) Hypertension Current Visit: Yes Status: Chronic Assessment and Plan: Has remained normotensive on Cardizem (6) HLD (hyperlipidemia) Current Visit: Yes Status: Chronic Assessment and Plan: Continue statin (7) DVT prophylaxis Current Visit: Yes Status: Acute Assessment and Plan: On heparin drip, patient will require bridge to warfarin for valvular A. fib - Time Spent with Patient Total time spent is greater than 50% in coordination of care (as documented) at patient's floor/unit and/or counseling patient: Internal Medicine: Result - Labs CBC & Chem 7: 06/13/18 05:30 06/13/18 05:30 Labs: Short CBC 06/13/18 Range/Units 05:30 WBC 16.2 H (4.3-11.1) K/mcL Hgb 12.5 (11.5-15.4) g/dL Hct 37.5 (35.3-44.9) % Plt Count 259 (140-400) K/mcL Neutrophils # 13.6 H (1.6-8.9) K/mcL BMP 06/13/18 05:30 Sodium 141 Potassium 3.6 Chloride 103 Carbon Dioxide 26 BUN 35 H Creatinine 0.85 Glucose 137 H Calcium 9.4 - ABG Interpretation ABG results: PT/INR, D-dimer PT 18.1 Seconds (9.4-12.1) H 06/11/18 15:27 - Impressions Impressions Chest X-Ray 06/12/18 09:12 IMPRESSION: Findings compatible pulmonary edema with basilar atelectasis and small effusions. D/ / Grayson Snell / Grayson Snell Interpreting Provider: Grayson Snell Echocardiogram 06/12/18 20:51 Impressions: LVEF 60%. Indeterminate diastolic function. Normal LV chamber size, wall thickness Normal right ventricular structure and function. Severely dilated left atrium.Moderately dilated right atrium. Moderate-severe mitral stenosis.Mean transmitral gradient is 19 mmHg @ HR 107/min. MVA was not well calculated Moderate tricuspid regurgitation. Moderate pulmonary hypertension. Moderate pleural effusion. Left Ventricular Wall Motion: Rest Echo Findings All wall segments showed normal motion. Findings: Study Quality * Technically adequate exam. ECG Findings * Atrial fibrillation. Left Ventricle * LVEF 60%. * Indeterminate diastolic function. * Normal LV chamber size, wall thickness Right Ventricle * Normal right ventricular structure and function. Left Atrium * Severely dilated left atrium. Right Atrium * Moderately dilated right atrium. Interatrial Septum * No evidence of PFO by color Doppler. Aortic Valve * Aortic valve not well visualized. * Moderately calcified aortic valve leaflets. * No aortic regurgitation. * No aortic stenosis. Mitral Valve * Moderate mitral annular calcification * Mild mitral regurgitation. * Moderate-severe mitral stenosis. * Mean transmitral gradient is 19 mmHg @ 107/min. MVA was not well calculated Tricuspid Valve * Moderate tricuspid regurgitation. * Moderate pulmonary hypertension. * Estimated RVSP is 50 mmHg. * Estimated RA pressure is 15 mmHg. Pulmonic Valve * Pulmonic valve not well visualized. Aorta * Normally sized aortic root. Pericardium * The pericardium appears normal. IVC * The IVC is dilated. Pleural Effusion * Moderate pleural effusion. Consult Discharge Plan - Plan Referrals: Gary Brown MD [Primary Care Provider] - Prescriptions: Apixaban [Eliquis] 2.5 mg PO BID #10 tablet Rivaroxaban [Xarelto] 20 mg PO DAILY #10 tablet <Jon Zayas - Last Filed: 06/13/18 13:35> Hospitalist Progress Note - Encounter Date of Encounter: 06/13/18 - Exam Vitals: Temp Pulse Resp BP Pulse Ox 98.1 F 101 16 129/80 95 06/13/18 12:00 06/13/18 12:00 06/13/18 12:00 06/13/18 12:00 06/13/18 12:00 - Assessment and Plan (1) Respiratory failure Current Visit: Yes Status: Acute (2) Rheumatic heart disease Current Visit: Yes Status: Acute (3) Atrial fibrillation Current Visit: Yes Status: Suspected (4) Acute CHF (congestive heart failure) Current Visit: Yes Status: Suspected (5) Mitral stenosis Current Visit: Yes Status: Chronic (6) Hypertension Current Visit: Yes Status: Chronic (7) Pulmonary edema Current Visit: Yes Status: Acute - Time Spent with Patient Total time spent is greater than 50% in coordination of care (as documented) at patient's floor/unit and/or counseling patient: Internal Medicine: Result - Labs CBC & Chem 7: 06/13/18 05:30 06/13/18 05:30 Labs: Short CBC 06/13/18 Range/Units 05:30 WBC 16.2 H (4.3-11.1) K/mcL Hgb 12.5 (11.5-15.4) g/dL Hct 37.5 (35.3-44.9) % Plt Count 259 (140-400) K/mcL Neutrophils # 13.6 H (1.6-8.9) K/mcL BMP 06/13/18 05:30 Sodium 141 Potassium 3.6 Chloride 103 Carbon Dioxide 26 BUN 35 H Creatinine 0.85 Glucose 137 H Calcium 9.4 - ABG Interpretation ABG results: PT/INR, D-dimer PT 18.1 Seconds (9.4-12.1) H 06/11/18 15:27 - Impressions Impressions Chest X-Ray 06/12/18 09:12 IMPRESSION: Findings compatible pulmonary edema with basilar atelectasis and small effusions. D/ / Grayson Snell / Grayson Snell Interpreting Provider: Grayson Snell Echocardiogram 06/12/18 20:51 Impressions: LVEF 60%. Indeterminate diastolic function. Normal LV chamber size, wall thickness Normal right ventricular structure and function. Severely dilated left atrium.Moderately dilated right atrium. Moderate-severe mitral stenosis.Mean transmitral gradient is 19 mmHg @ HR 107/min. MVA was not well calculated Moderate tricuspid regurgitation. Moderate pulmonary hypertension. Moderate pleural effusion. Left Ventricular Wall Motion: Rest Echo Findings All wall segments showed normal motion. Findings: Study Quality * Technically adequate exam. ECG Findings * Atrial fibrillation. Left Ventricle * LVEF 60%. * Indeterminate diastolic function. * Normal LV chamber size, wall thickness Right Ventricle * Normal right ventricular structure and function. Left Atrium * Severely dilated left atrium. Right Atrium * Moderately dilated right atrium. Interatrial Septum * No evidence of PFO by color Doppler. Aortic Valve * Aortic valve not well visualized. * Moderately calcified aortic valve leaflets. * No aortic regurgitation. * No aortic stenosis. Mitral Valve * Moderate mitral annular calcification * Mild mitral regurgitation. * Moderate-severe mitral stenosis. * Mean transmitral gradient is 19 mmHg @ 107/min. MVA was not well calculated Tricuspid Valve * Moderate tricuspid regurgitation. * Moderate pulmonary hypertension. * Estimated RVSP is 50 mmHg. * Estimated RA pressure is 15 mmHg. Pulmonic Valve * Pulmonic valve not well visualized. Aorta * Normally sized aortic root. Pericardium * The pericardium appears normal. IVC * The IVC is dilated. Pleural Effusion * Moderate pleural effusion. - Attending Attestation I examined this patient and my medical decision-making was reviewed with the Resident Physician on 06/13/18. I agree with the documented findings, disposition and treatment plan as described except to the extent set forth below. Ms Dominguez is currently admitted for rapid atrial fibrillation. She remains moderate to high risk due to potential for worsening clinical status. Ms Dominguez is resting in bed. She needed bipap last night. She seems a little more dyspneic today. Heart rate still elevated on drip and PO Cardizem. No f ever or chills. No CP. No GI issues. Echo shows mod-severe mitral stenosis, dilated atria and EF 60% Exam alert Mod resp distress at rest Mucus membranes dry Heart irreg and tachy - hard to hear any murmur Decreased breath sounds bilaterally Abd soft and nontender Trace edema present I/P 1. Mitral stenosis - rheumatic heart disease - cardiology consulted. Will need to be on coumadin at discharge. 2. Atrial fibrillation - still not well controlled. Meds have been increased. 3. CHF - acute on chronic diastolic. 4. Rheumatic heart disease 5. HTN - controlled at this time Further definitive plan pending cardiology evaluation. Further diagnoses and plan as above. ___ <Carlton Barillas - Last Filed: 06/13/18 11:16> (2) Acute CHF (congestive heart failure) Qualifiers: Heart failure type: diastolic Qualified Code(s): I50.31 - Acute diastolic (congestive) heart failure (5) Hypertension Qualifiers: Hypertension type: essential hypertension Qualified Code(s): I10 - Essential (primary) hypertension (6) HLD (hyperlipidemia) Qualifiers: Hyperlipidemia type: mixed hyperlipidemia Qualified Code(s): E78.2 - Mixed hyperlipidemia <Jon Zayas - Last Filed: 06/13/18 13:35> (1) Respiratory failure Qualifiers: Chronicity: acute Respiratory failure complication: hypoxia Qualified Code(s): J96.01 - Acute respiratory failure with hypoxia (3) Atrial fibrillation Qualifiers: Atrial fibrillation type: chronic Qualified Code(s): I48.2 - Chronic atrial fibrillation (4) Acute CHF (congestive heart failure) Qualifiers: Heart failure type: diastolic Qualified Code(s): I50.31 - Acute diastolic (congestive) heart failure (5) Mitral stenosis Qualifiers: Cardiac valve disease etiology: rheumatic Qualified Code(s): I05.0 - Rheumatic mitral stenosis (6) Hypertension Qualifiers: Hypertension type: essential hypertension Qualified Code(s): I10 - Essential (primary) hypertension (7) Pulmonary edema Qualifiers: Chronicity: acute Qualified Code(s): J81.0 - Acute pulmonary edema
--- NOTE | 2018-06-13 10:16 | Cardiology Consult Note ---
<[place] A - Last Filed: 06/13/18 16:48> Date of Encounter: 06/13/18 Time of Encounter: 11:00 Assessment and Plan (1) Atrial fibrillation with RVR Current Visit: Yes Status: Acute Admitted on 06/10 with new onset Afib with RVR Was initially started on Cardizem drip, has been transitioned to PO cardizem 90mg q8hr at this time CHADS2-VASC score of 5 - currently on Heparin drip Will require Coumadin at home with valvular pathology as detailed below This is likely due to significant mitral stenosis as seen on TTE. Pt does have hx of rheumatic fever as well. 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 Likely not a candidate for repair, and will require replacement if any surgical intervention is indicated. (3) Pleural effusion Current Visit: Yes Status: Acute 2/2 pulmonary HTN related to mitral stenosis and afib with RVR Mildly labored breathing on 2lpm Plan as above for mitral stenosis and afib with RVR BiPAP at night Primary team has diuresed pt thus far, appears euvolemic at this time. No appreciable rales on exam. Suspect further diuresis will not provide significant improvement in respiratory status. (4) HLD (hyperlipidemia) Current Visit: Yes Status: Chronic Continue home statin Qualifiers: Hyperlipidemia type: mixed hyperlipidemia Qualified Code(s): E78.2 - Mixed hyperlipidemia Discussion w patient/family: The assessment and plan as outlined above was discussed with the patient and/or family members who expressed understanding and agreement. All questions were answered. Thank you for involving us in the care of your patient. Please call with any questions. History of Present Illness Consult date: 06/13/18 Requesting physician: Carlton Barillas Consult reason: Afib Chief complaint: Shortness of breath History of present illness: Ms. Dominguez is a 78 year old female with PMH of HTN and HLD. She originally presented to the ED on 06/10/18 complaining of shortness of breath of approximately 1 week duration. States the shortness of breath was progressively worsening during this time and was particularly notable during ambulation. States prior to this she was able to complete house and yard work, as well as walk up and down stairs without difficulty or shortness of breath. She did also complain of some increased cough with clear sputum production and increased sinus congestion as well. Denied any fever or chills. She was seen at urgent care and was diagnosed with bilateral interstitial disease and perihilar abnormality. CXR from the ED revealed pulmonary edema and bilateral small effusions. CTA chest from the ED was negative for PE or aortic dissection, but did demonstrate bilateral pleural effusions with adjacent airspace disease and interlobular septal thickening suggestive of pulmonary edema. EKG from the ED showed afib with RVR and pt was subsequently started on a Cardizem drip. She was also placed on BiPAP to assist with her respiratory status. Transthoracic Echocardiogram was performed on 06/12/18 which showed LVEF 60% with indeterminate diastolic function, severely dilated left atrium and moderately dilated right atrium. Moderate to severe Mitral stenosis was appreciated with significant calcification of the mitral valve. Moderate pulmonary hypertension was also appreciated. Upon further questioning with the pt, she does recall having rheumatic fever when she was in the 3rd grade. States she experienced fever and painful joints at that time. Also states she was told she had a heart murmur afterwards, but states when she had an echo done in 2006, she was told her heart valves were normal. Pt seen and examined at bedside by this provider this morning. States she is starting to feel better. States she wore the BiPAP last night and "it helped my breathing a lot". Denies any chest pain, chest pressure, fever, chills, syncope, headache, vision changes, numbness, or tingling. Past Med Surg Social Fam HX - Past Medical History Medical history: hyperlipidemia, hypertension Additional medical history: oa Psychiatric history: no psych history - Past Surgical History Surgical History: appendectomy, sinus surgery Additional surgical history: R humerus repair - Social History Smoking Status: Never smoker Smokeless Tobacco Status: No Alcohol use: none Drug use: none - Family History Mother History Unknown: Yes Medications and Allergies Aspirin 81 mg PO DAILY 08/17/16 [History] Calcium Carbonate [Calcium] 600 mg PO BID 11/12/15 [History] [place]-3/Dha/Epa/Fish Oil [Fish Oil 1,000 mg Softgel] 1,000 mg PO DAILY 11/12/15 [History] Simvastatin [Zocor] 20 mg PO HS 11/12/15 [History] amLODIPine [Norvasc] 5 mg PO DAILY 11/12/15 [History] Multivit-Min/FA/Lycopen/Lutein [Centrum Silver Tablet] 1 each PO DAILY 06/10/18 [History] Allergy/AdvReac Type Severity Reaction Status Date / Time Amoxicillin Allergy Hives Verified 10/25/15 17:43 Sulfa (Sulfonamide Allergy Hives Verified 10/25/15 17:43 Antibiotics) oxycodone [Oxycodone] AdvReac Nausea Verified 07/14/17 14:28 All Systems Review: The remainder of the systems were reviewed and are negative - Constitutional Constitutional: no chills, no fever(s), no night sweats - Cardiovascular Cardiovascular: dyspnea on exertion, no chest pain at rest, no chest pain with exertion, no diaphoresis, no dyspnea at rest, no irregular heart rhythm, no lightheadedness, no orthopnea, no palpitations, no paroxysmal nocturnal dyspnea, no rapid heart rate, no syncope - Respiratory Respiratory: no cough, no dyspnea, no hemoptysis, no wheezing - Gastrointestinal Gastrointestinal: no abdominal pain, no constipation, no diarrhea, no hematochezia, no melena, no nausea - Genitourinary Genitourinary: no dysuria, no hematuria - Musculoskeletal Musculoskeletal: no arthralgias, no back pain, no muscle cramps, no muscle weakness, no myalgias - Integumentary Integumentary: no erythema, no rash, no unusual bruising - Neurological Neurological: no dizziness, no numbness, no tingling - Hematological/Lymphatic Hematologic/Lymphatic: no easy bleeding, no easy bruising Physical Examination Vital Signs, Last 4 Hours Temp Pulse Resp BP Pulse Ox 06/13/18 06:51 98.8 F 111 16 116/66 97 General: Conversant, No Apparent Distress HEENT: Atraumatic, Normocephaly, Mucus Membranes Moist Neck: No JVD, Normal carotid pulses Cardiac: Other (Irregularly irregular rhythm) Lungs: Normal Breath Sounds, No Wheeze, Rales, Rhonchi Neuro: Alert and responsive, No focal deficits noted Abdomen: Soft, Non-Tender Skin: No rashes noted on visualized skin Musculoskeletal: No Chest Wall Tenderness Extremities: No Clubbing, No Cyanosis, No Edema, Normal Pulses Results 06/13/18 05:30 06/13/18 05:30 Lab Results 06/13/18 06/13/18 05:30 05:30 WBC 16.2 H Hgb 12.5 Hct 37.5 Plt Count 259 Sodium 141 Potassium 3.6 Chloride 103 Carbon Dioxide 26 BUN 35 H Creatinine 0.85 Glucose 137 H Calcium 9.4 - Imaging and Cardiology Chest Xray: report reviewed, image reviewed Echo: report reviewed, image reviewed - EKG Interpretation EKG results cardiology: personally reviewed, no diagnostic ischemia, other (Afib with RVR) Consult Discharge Plan - Plan Referrals: Gary Brown MD [Primary Care Provider] - <Alfred Mcclure - Last Filed: 06/14/18 12:53> Date of Encounter: 06/13/18 Time of Encounter: 14:00 - Attending Attestation I examined this patient and my medical decision-making was reviewed with the Resident Physician. I agree with the documented findings, disposition and t reatment plan as described except to the extent set forth below. CC: Shortness of breath HPI: PT presented to ER with complaints of shortness of breath, worsening over the last week, productive of clear sputum. She was found to be in A fib with RVR, heart rates 140 to 150s, not symptomatic, denies chest pain, palpitations or chest pressure. She has hx heart murmur, rheumatic fever as a child and YI which is untreated. ROS: reviewed PMH: reviewd Labs, Xrays, echo reviewed PE: Pt seen and examined, agree with findings as above with addition of increased chest AP diameter, poor inspiratory effort on O2, confirm no murmur to auscultation. IMP/Plan: 1. A fib with RVR, new, controlled ventricular response on diltiazem drip, on heparin drip. Will transition to PO dilt, continue IV heparin 2. Mitral stenosis: at least moderate, some evidence of severe, limited views on TTE, due to severe annular calcification of mitrial valve annulus, recommend ESPERANZA to further define mitral and aortic valve pathology, hx rheumatic fever as child. Risks and benefits of ESPERANZA discussed, pt agress to proceed 3. YI; not treated, has equipment but mask needs repair, has not used for many months. 4. Hyperlipidemia: on statin, check fasting lipid profile. Assessment and Plan Discussion w patient/family: The assessment and plan as outlined above was discussed with the patient and/or family members who expressed understanding and agreement. All questions were answered. Thank you for involving us in the care of your patient. Please call with any questions. History of Present Illness History of present illness: Ms. Dominguez is a 78 year old female All Systems Review: The remainder of the systems were reviewed and are negative Physical Examination Vital Signs, Last 4 Hours Temp Pulse Resp BP Pulse Ox 06/14/18 11:00 98.5 F 102 26 143/68 95 Results 06/14/18 06:34 06/14/18 06:34 Lab Results 06/14/18 06/14/18 06/14/18 06:34 06:34 06:34 WBC 8.6 Hgb 11.8 Hct 36.2 Plt Count 203 INR 1.4 Sodium 139 Potassium 3.4 L Chloride 98 Carbon Dioxide 31 H BUN 27 H Creatinine 0.71 Glucose 208 H Calcium 9.0
[2018-06-13] MEDS: Heparin 25,000 UNIT/250 ML D5W 25,000 UNIT/250 ML IV.SOLN IVC SCH (15:52)
[2018-06-13] MEDS ORDERED: *HR* Warfarin 3 MG TABLET PO ONE (18:00)
[2018-06-13] MEDS ORDERED: Warfarin perPT PO PRN (18:00)
--- NOTE | 2018-06-14 04:32 | Event Note ---
Date of Encounter: 06/14/18 Time of Encounter: 03:00 Notified by nurse earlier in shift of patient becoming more short of breath, RT came to assess patient and placed back on BIPAP and patient tolerated well. Later notified of patient having significant tachypnea and tachycardia when off BIPAP when up to go to restroom and seeming very anxious when up. Heart and respiratory rate improve once back to bed. Instructed to use bedside commode rather than ambulate to restroom. Chest xray ordered which shows: 1. No significant change in bilateral pleural effusions, remaining larger on the right. However, underlying bibasilar airspace opacities appear slightly increased, due in part to passive atelectasis but possibly with superimposed pneumonia or aspiration. 2. No significant change in diffuse interstitial opacities most suggestive of edema. Interstitial pneumonia could appear similar. Discussed patient and findings with Dr Hairston, will order sputum culture and start on antibiotic coverage for possible pneumonia given xray results and continued need for oxygen and BIPAP. Blood cultures pending. Nurse to notify of any additional changes.
[2018-06-14] MEDS ORDERED: Azithromycin 500 MG in D5% in Water 250 ML IVPB SCH (05:00)
[2018-06-14 06:54] LABS: Basophils % 0.1 %; Hematocrit 36.2 % (35.3-44.9); Hemoglobin 11.8 g/dL (11.5-15.4); Immature Granulocytes % 0.3 % (0-4); Lymphocytes # 0.4 K/mcL (0.6-4.6); Lymphocytes % 4.1 %; Mean Corpuscular HGB Conc 32.6 g/dL (31.6-35.5); Mean Corpuscular Hemoglobin 29.8 pg (28.0-33.3); Mean Corpuscular Volume 91.4 fL (83.0-100.0); Mean Platelet Volume 11.2 fL (9.4-12.4); Monocytes # 0.9 K/mcL (0.0-1.3); Monocytes % 10.6 %; Neutrophils # 7.3 K/mcL (1.6-8.9); Platelet Count 203 K/mcL (140-400); Red Blood Count 3.96 M/mcL (3.82-4.97); Red Cell Distribution Width 13.7 % (11.5-14.5); Segmented Neutrophils % 84.9 %
[2018-06-14 06:56] LABS: INR 1.4; Prothrombin Time 15.2 Seconds (9.4-12.1)
[2018-06-14 06:57] LABS: Heparin anti-factor XA UFH 0.45 IU/mL (0.30-0.70)
[2018-06-14 07:09] LABS: BUN/Creatinine Ratio 38 (6-26); Blood Urea Nitrogen 27 mg/dL (8-23); Carbon Dioxide 31 mEq/L (23-29); Chloride 98 mEq/L (98-107); Glucose 208 mg/dL (70-105); Osmolality,Calculated 299 (280-300); Potassium 3.4 mEq/L (3.5-5.1); Sodium 139 mEq/L (136-145); eGFR For Non-African Americans > 60 (> 60)
[2018-06-14] MEDS ORDERED: *HR* FentaNYL (PF) 100 MCG/2 ML VIAL IVP PRN (08:06)
[2018-06-14] MEDS ORDERED: Lidocaine Viscous Oral Soln 15 ML SOLUTION MM PRN (08:06)
[2018-06-14] MEDS ORDERED: 0.9 % Sodium Chloride 500 ML IVC ONE (08:07)
--- NOTE | 2018-06-14 08:23 | Internal Med Progress Note ---
Hospitalist Progress Note - Encounter Date of Encounter: 06/14/18 - Exam Vitals: Temp Pulse Resp BP Pulse Ox 98.8 F 96 22 124/76 96 06/14/18 06:55 06/14/18 06:55 06/14/18 06:55 06/14/18 06:55 06/14/18 06:55 - Assessment and Plan (1) Atrial fibrillation with RVR Current Visit: Yes Status: Acute (2) Acute CHF (congestive heart failure) Current Visit: Yes Status: Suspected (3) Rheumatic heart disease Current Visit: Yes Status: Acute (4) Pleural effusion Current Visit: Yes Status: Acute (5) Hypertension Current Visit: Yes Status: Chronic (6) HLD (hyperlipidemia) Current Visit: Yes Status: Chronic (7) DVT prophylaxis Current Visit: Yes Status: Acute - Time Spent with Patient Total time spent is greater than 50% in coordination of care (as documented) at patient's floor/unit and/or counseling patient: Internal Medicine: Result - Labs CBC & Chem 7: 06/14/18 06:34 06/14/18 06:34 Labs: Short CBC 06/14/18 Range/Units 06:34 WBC 8.6 (4.3-11.1) K/mcL Hgb 11.8 (11.5-15.4) g/dL Hct 36.2 (35.3-44.9) % Plt Count 203 (140-400) K/mcL Neutrophils # 7.3 (1.6-8.9) K/mcL BMP 06/14/18 06:34 Sodium 139 Potassium 3.4 L Chloride 98 Carbon Dioxide 31 H BUN 27 H Creatinine 0.71 Glucose 208 H Calcium 9.0 - ABG Interpretation ABG results: PT/INR, D-dimer PT 15.2 Seconds (9.4-12.1) H 06/14/18 06:34 - Impressions Impressions Chest X-Ray 06/14/18 03:11 IMPRESSION: 1. No significant change in bilateral pleural effusions, remaining larger on the right. However, underlying bibasilar airspace opacities appear slightly increased, due in part to passive atelectasis but possibly with superimposed pneumonia or aspiration. 2. No significant change in diffuse interstitial opacities most suggestive of edema. Interstitial pneumonia could appear similar. D/ / Lencho Multani MD / Lencho Multani MD Interpreting Provider: Lencho Multani MD Consult Discharge Plan - Plan Referrals: Gary Brown MD [Primary Care Provider] - (2) Acute CHF (congestive heart failure) Qualifiers: Heart failure type: diastolic Qualified Code(s): I50.31 - Acute diastolic (congestive) heart failure (5) Hypertension Qualifiers: Hypertension type: essential hypertension Qualified Code(s): I10 - Essential (primary) hypertension (6) HLD (hyperlipidemia) Qualifiers: Hyperlipidemia type: mixed hyperlipidemia Qualified Code(s): E78.2 - Mixed hyperlipidemia
[2018-06-14] MEDS: *HR* Midazolam HCl 5 MG/5 ML VIAL IVP PRN ×2 (08:50→08:55)
[2018-06-14] MEDS ORDERED: cefTRIAXone 1,000 MG in Water for inj. (sterile) 20 ML 10 ML IVP SCH (09:00)
[2018-06-14] MEDS: Aspirin 81 MG TAB.CHEW PO SCH (10:16)
[2018-06-14] MEDS: Furosemide 20 MG/2 ML VIAL IVP SCH (10:17)
[2018-06-14] MEDS ORDERED: Furosemide 20 MG/2 ML VIAL IVP ONE (11:42)
--- NOTE | 2018-06-14 12:28 | Discharge Summary ---
<Carlton Barillas N - Last Filed: 06/14/18 12:35> - NOTES TO OUTPATIENT PROVIDER Notes to Outpatient Provider: Patient diagosed with acute exacerbation of heart failure and new onset afib secondary to mitral valve stenosis and severely dilated left atrium. Suspect from underlying rheumatic heart disease. SUSAN also noted small linear echodensity along aortic valve and slight echodensity which was concerning for vegetation. Patient required cardiothoracic surgery consultation and was transferred to [facility] for higher level of management. Orders not resulted at time of discharge: Pending orders 06/10/18 16:48 Culture,Blood [BC] Stat 06/14/18 04:33 Culture,Sputum with Gram Stain [RM] Stat 06/15/18 04:00 BMP [Basic Metabolic Panel] AM 0400 CBC [Complete Blood Count] [HEME] AM 0400 Prothrombin Time INR [COAG] AM 0400 06/15/18 06:34 Heparin anti-factor XA UFH [COAG] Routine 06/16/18 04:00 Prothrombin Time INR [COAG] AM 0400 06/17/18 04:00 Prothrombin Time INR [COAG] AM 0400 06/18/18 04:00 Prothrombin Time INR [COAG] AM 0400 Date of Encounter: 06/14/18 Time of Encounter: 09:00 - Discharge Diagnosis (1) Atrial fibrillation with RVR Priority: Primary Status: Acute (2) Acute CHF (congestive heart failure) Priority: Primary Status: Acute Qualifiers: Heart failure type: diastolic Qualified Code(s): I50.31 - Acute diastolic (congestive) heart failure (3) Rheumatic heart disease Priority: Primary Status: Chronic (4) Aortic valve vegetation Priority: Secondary Status: Suspected (5) Pleural effusion Priority: Secondary Status: Acute (6) Hypertension Priority: Secondary Status: Chronic Qualifiers: Hypertension type: essential hypertension Qualified Code(s): I10 - Essential (primary) hypertension (7) HLD (hyperlipidemia) Priority: Secondary Status: Chronic Qualifiers: Hyperlipidemia type: mixed hyperlipidemia Qualified Code(s): E78.2 - Mixed hyperlipidemia Hospital course: Ms. Dominguez is a 78 year old female who was admitted to the hospital with new onset A. fib secondary to severe mitral valve stenosis. Patient has a history of hypertension and hyperlipidemia who presented to the hospital with a chief complaint of progressive shortness of breath over several days. She was transferred from an urgent care center where a chest x-ray was found to show bilateral pleural effusions and mild pulmonary edema. On arrival patient was tachypneic and tachycardic. EKG showed A. fib with RVR with a heart rate in the 160s. CT angiogram was performed and confirmed pleural effusions and the pos sibility of bilateral lower lobe pneumonia as well. She was admitted to the hospital and started on Cardizem and heparin drips and diuresed with Lasix. During her hospitalization patient's A. fib was poorly controlled and oral Cardizem was started and titrated up per cardiology. A transthoracic echo was performed that showed LVEF 60% with a severely dilated left atrium, moderately dilated right atrium, and moderate-severe mitral stenosis with a mean transmitral gradient of 19 mmHg. A follow-up transesophageal echocardiogram was performed which redemonstrated the moderate-severe mitral stenosis with eccentric mitral regurgitation and a gradient of 9-11 mmHg. SUSAN also revealed a small linear echodensity along the aortic valve which may represent Lambl's excrescence as well as a small round slightly mobile echodensity which may represent possible vegetation in the clinical context of possible underlying bilateral pneumonia seen on CT. Patient was started on vancomycin and Zosyn, however patient has remained afebrile during her stay. The previous 2 nights patient also had increased work of breathing and tachypnea at nighttime and has required BiPAP at 30% FiO2. This morning patient has had increased work of breathing as well, she was hypoxic on 2 L and was placed back on BiPAP after which she recovered. Due to patient's worsening respiratory status as well as new onset valvular A. fib secondary to severe mitral valve stenosis patient requires higher level of care and will be transferred to [facility] for further care and management. Patient initially refused transfer and wishes to stay at [place], however she she is now more agreeable understands the importance for further evaluation and higher level care. She states that she will speak with her son to make a decision regarding further care. Will proceed with the transfer to [facility] and will wait for updates from the patient regarding her wishes. - Time Spent with Patient Total time spent providing and/or coordinating discharge services: - Discharge Medications Prescriptions: New Warfarin perPT [Coumadin perPT] 1 each PO DAILY@1800 PRN each PRN Reason: See Comments Diltiazem [Cardizem] 120 mg PO Q8HR tablet Furosemide [Lasix] 20 mg IVP BID vial Continue Monson-3/Dha/Epa/Fish Oil [Fish Oil 1,000 mg Softgel] 1,000 mg PO DAILY amLODIPine [Norvasc] 5 mg PO DAILY Simvastatin [Zocor] 20 mg PO HS Aspirin 81 mg PO DAILY Calcium Carbonate [Calcium] 600 mg PO BID Multivit-Min/FA/Lycopen/Lutein [Centrum Silver Tablet] 1 each PO DAILY Home Medications: Aspirin 81 mg PO DAILY 11/12/15 [History] Calcium Carbonate [Calcium] 600 mg PO BID 11/12/15 [History] Monson-3/Dha/Epa/Fish Oil [Fish Oil 1,000 mg Softgel] 1,000 mg PO DAILY 11/12/15 [History] Simvastatin [Zocor] 20 mg PO HS 11/12/15 [History] amLODIPine [Norvasc] 5 mg PO DAILY 11/12/15 [History] Multivit-Min/FA/Lycopen/Lutein [Centrum Silver Tablet] 1 each PO DAILY 06/10/18 [History] Diltiazem [Cardizem] 120 mg PO Q8HR tablet 06/14/18 [Rx] Furosemide [Lasix] 20 mg IVP BID vial 06/14/18 [Rx] Warfarin perPT [Coumadin perPT] 1 each PO DAILY@1800 PRN each 06/14/18 [Rx] Allergies/Adverse Reactions: Allergy/AdvReac Type Severity Reaction Status Date / Time Amoxicillin Allergy Hives Verified 10/25/15 17:43 Sulfa (Sulfonamide Allergy Hives Verified 10/25/15 17:43 Antibiotics) oxycodone [Oxycodone] AdvReac Nausea Verified 07/14/17 14:28 Date of admission: 06/10/18 20:21 Primary care physician: Gary Brown Consults: 06/12/18 13:10 Consult to Cardiology [CONS] Routine Comment: Consulting Provider: Cardiology uLcy Reason for Consult: afib Call Completed: Yes 06/13/18 16:53 Consult to Nurse Navigator [CONS] Routine Comment: CHF Discharging clinician: Carlton Barillas Anticipated date of discharge: 06/14/18 - Constitutional Vitals: Temp Pulse Resp BP Pulse Ox 98.5 F 102 26 143/68 95 06/14/18 11:00 06/14/18 11:00 06/14/18 11:00 06/14/18 11:00 06/14/18 11:00 General appearance: Present: A&O X 3, pleasant, no acute distress, answers questions appropriately Exam: General: Sitting upright in bed, no acute distress HEENT: Pupils are equal round reactive to light, extra ocular muscles intact, oropharynx is moist, head is atraumatic and normocephalic. Neck: No JVD, trachea midline Chest: Symmetrical chest wall rise, no tenderness to palpation Respiratory: ronchorous and worse at the bases bilaterally Cardiovascular: Tachycardia with irregular rhythm, no murmurs Abdomen: Soft, nontender, no guarding rigidity Extremities: 1+ pitting edema of the lower extremity's bilaterally Neurological: No obvious focal neurological deficits Psych: Appropriate mood and affect - Patient Status Disposition: Transfer Intermediate Care Fac Condition: Serious Functional capacity at discharge: independent ambulation Overall status at discharge: patient is not back to baseline - Discharge Instructions Follow Up With: Gary Brown MD [Primary Care Provider] - - Diet and Activity Activity: wear oxygen at all times Diet: advance to your usual diet <Adenike Richard - Last Filed: 06/14/18 14:50> Orders not resulted at time of discharge: Pending orders 06/10/18 16:48 Culture,Blood [BC] Stat 06/14/18 04:33 Culture,Sputum with Gram Stain [RM] Stat 06/15/18 04:00 BMP [Basic Metabolic Panel] AM 0400 CBC [Complete Blood Count] [HEME] AM 0400 Prothrombin Time INR [COAG] AM 0400 06/15/18 06:34 Heparin anti-factor XA UFH [COAG] Routine 06/16/18 04:00 Prothrombin Time INR [COAG] AM 0400 06/17/18 04:00 Prothrombin Time INR [COAG] AM 0400 06/18/18 04:00 Prothrombin Time INR [COAG] AM 0400 Date of Encounter: 06/14/18 - Discharge Diagnosis (1) Pleural effusion Status: Acute (2) Atrial fibrillation with RVR Status: Acute (3) HLD (hyperlipidemia) Status: Chronic Qualifiers: Hyperlipidemia type: mixed hyperlipidemia Qualified Code(s): E78.2 - Mixed hyperlipidemia (4) Rheumatic mitral stenosis Status: Acute (5) Aortic valve vegetation Priority: Secondary Status: Suspected Hospital course: Ms. Dominguez is a 78 year old female Discharge discussed with: patient, family, nurse Time spent discussing smoking cessation with patient: more than 10 minutes - Time Spent with Patient Total time spent providing and/or coordinating discharge services: Time spent: Greater than 30 minutes (60 min) Date of admission: 06/10/18 20:21 Primary care physician: Gary Brown Consults: 06/12/18 13:10 Consult to Cardiology [CONS] Routine Comment: Consulting Provider: Cardiology Lucy Reason for Consult: afib Call Completed: Yes 06/13/18 16:53 Consult to Nurse Navigator [CONS] Routine Comment: CHF - Constitutional Vitals: Temp Pulse Resp BP Pulse Ox 98.5 F 102 26 143/68 95 06/14/18 11:00 06/14/18 11:00 06/14/18 11:00 06/14/18 11:00 06/14/18 11:00 - Attending Attestation I examined this patient and my medical decision-making was reviewed with the Resident Physician Dr Barillas. I agree with the documented findings, disposition and treatment plan as described except to the extent set forth below. Ms Dominguez is currently admitted for rapid atrial fibrillation, pulmonary edema in setting of newly identified moderate to severe MS confirmed by SUSAN and possible Aortic valve vegetation vs Lambls. Cardiology recommendation for CT surg eval regarding valvular disease. I have personally dscussed with pt and with her family extensively and they want transfer to [facility] for CT surg eval. She is being treated with vanc + zosyn for possible pna as well as emprically given SUSAN 06/14 finding that cannot rule out AV vegetation. She remains moderate to high risk due to potential for worsening clinical status. Sh e is accepted in transfer to [facility]. Ms Dominguez is resting in bed. on bipap. She is anxious s/p SUSAN because of sedation given making her feel drowsy. She wanted to speak to her son regarding transfer. I have spoken to him on the phone numerous times this afternoon (Stewart Dominguez) and he very much would like his mother transferred for further eval by CT surg. She is drowsy and minimally confused at this time post sedation, but he reassures me they have discussed, as has he with his brother, and with his niecw, all all would like her transferred for further care. She denies cp, pressure, palpitations. gen- alert, awake,appears stated age eyes- pupils equal round cv- reg rate and rhythm, normal s1,s2, no jvd or le edema lungs- ctabl, no wheezing,diminished throughout, worst at bases, increased resp rate on o2 nc, normal resp rate on bipap abd- soft, non tender, non distended, + bs neuro- AAOxperson, place 1. Moderate tp severe Mitral stenosis - rheumatic heart disease Hx - cardiology consulted. s/p SUSAN 06/[address] surg eval. Family/pt agreeable, transferring to [facility] 2. Atrial fibrillation - cont PO cardizem and adjust as needed, cont hep gtt bridging to couamdin while here, INR 1.4 today 3. CHF - acute on chronic diastolic- cont diuresis, o2 nc/bipap prn 4. Acute resp iratory failure with hypoxia 2/2 above- treatment as above, Chest imaging with possible pna, bl, cont vanc + zosyn 5. HTN - controlled at this time 6. Echodensity aortic valve on Susan- Lambl's vs vegetation- cont vanc + zosyn at this time, CT surg eval warranting transfer as above Further diagnoses and plan as noted by resident Transfer to [facility] as confirmed by pt and family time spent on dc 60 min
[2018-06-14 14:34] LABS: VBG HCO3 35 mEq/L (21-27); VBG PCO2 53 mmHg (41-51); VBG PH 7.43 pH Units (7.32-7.42); VBG PO2 45 mmHg (25-50)
[2018-06-14] MEDS ORDERED: Benzonatate 100 MG CAPSULE PO PRN (15:36)
[2018-06-14 15:46] VITALS: BP 135/80
[2018-06-14] MEDS ORDERED: Piperacillin/Tazobactam 3.375 GM in 0.9 % Sodium Chloride Mini Bag 100 ML IVPB SCH (16:00)
[2018-06-14] MEDS ORDERED: *HR* Warfarin 3 MG TABLET PO ONE (18:00)
[2018-06-14] MEDS ORDERED: Aminoglycoside Consult 1 EACH MC ONE (18:50)
--- NOTE | 2018-06-15 18:27 | Electrocardiograph Report ---
[address] [address] Test Date: 2018-06-10 Pat Name: Bernie Dominguez Department: [id number] Room: 2NE16 Gender: F [employer]ic[employer] Manager: : [id number] Requested By: Tristan Mcmahon Order Number: [id number] Reading MD: Pita Reyna Measurements Intervals [place] Rate: 149 P: MN: QRS: 108 QRSD: 73 T: 47 QT: 290 QTc: 457 Interpretive Statements Atrial fibrillation with rapid V-rate Nonspecific ST abnormalities Electronically Signed On 06-15-2018 18:25:37 EDT by Pita Reyna
== END 2018-06-14 18:51 | DRG 306 ==
LOC: 2NENU 16:20 → EMEROOARM 16:20 → SUATTDRO 20:21 → 2NENU 21:51
PROVIDERS: ADMIT Internal Medicine; ATTEND Internal Medicine